=== PATIENT | male | born 1940 | race Caucasian/White ===

== ENCOUNTER 2018-12-19 15:17 | Outpatient (CLI) | payer MEDICARE ==
[~2018-12-19] VITALS: Ht 170.2 cm; Wt 107.5 kg
[2018-12-19 16:38] LABS: CLARITY,URINE CLEAR (Clear); COLOR,URINE STRAW (Yellow); GLUCOSE, URINE NEGATIVE (Neg); KETONES,URINE NEGATIVE (Neg); LEUKOCYTE ESTERASE ,URINE NEGATIVE (Neg); NITRITES, URINE NEGATIVE (Neg); OCCULT BLOOD,URINE NEGATIVE (Neg); PROTEIN,URINE NEGATIVE (Neg); UROBILINOGEN,URINE 0.2 E.U/dL (0.2-1.0)
[2018-12-19] MEDS ORDERED: ATOR10TA70 PO (16:41)
[2018-12-19] MEDS ORDERED: CLOP75TA35 PO (16:41)
[2018-12-19] MEDS ORDERED: METF500T7 PO (16:41)
[2018-12-19] MEDS ORDERED: LOSA25TA41 PO (16:41)
[2018-12-19] MEDS ORDERED: DONE-46 PO (16:41)
[2018-12-19 16:42] LABS: UA COLLECTION TYPE NON-SPECIFIED
[2018-12-19] MEDS ORDERED: SLEEPING MED PO (16:42)
[2018-12-19 16:51] LABS: ALBUMIN 3.6 G/DL (3.4-5.0); ALKALINE PHOSPHATASE 47 IU/L (46-116); BLOOD UREA NITROGEN 15 MG/DL (7-18); BUN/CREATININE RATIO 19.2 (5.4-32.0); CALCIUM 9.3 MG/DL (8.5-10.1); CHLORIDE 103 MMOL/L (99-107); CREATININE 0.78 MG/DL (0.60-1.10); PRE OP ALT 32 U/L (30-65); PRE OP ANION GAP 8 (8-16); PRE OP AST 21 U/L (10-37); PRE OP BILIRUB, TOTAL 0.5 MG/DL (0.0-1.0); PRE OP GLUCOSE 92 MG/DL (70-104); PRE OP POTASSIUM 3.8 MMOL/L (3.4-5.1); PRE OP SODIUM 138 MMOL/L (135-145); TOTAL CARBON DIOXIDE 27.4 MMOL/L (24-32); TOTAL PROTEIN 7.2 G/DL (6.4-8.2); eGFR > 90 ML/MIN
[2018-12-19 16:54] LABS: BASOPHILS % (AUTO) 0.6 % (0-1); EOSINOPHILS # (AUTO) 0.3 X10'3 (0-0.9); EOSINOPHILS % (AUTO) 3.5 % (0-6); LYMPHOCYTES # (AUTO) 2.4 X10'3 (1.1-4.8); LYMPHOCYTES % (AUTO) 31.3 % (21-51); MEAN CORPUSCULAR HEMOGLOBIN 31.5 PG (27.0-31.0); MEAN CORPUSCULAR HGB CONC 34.1 g/dL (33.0-36.5); MEAN CORPUSCULAR VOLUME 92.4 FL (78-98); MEAN PLATELET VOLUME 8.7 FL (7.4-10.4); MONOCYTES # (AUTO) 0.6 X10'3 (0-0.9); MONOCYTES % (AUTO) 7.2 % (2-12); NEUTROPHILS # (AUTO) 4.5 X10'3 (1.8-7.7); NEUTROPHILS % (AUTO) 57.4 % (42-75); PRE OP HEMATOCRIT 45.2 % (42.0-52.0); PRE OP HEMOGLOBIN 15.4 g/dL (14.0-17.9); PRE OP PLATELET COUNT 233 X10'3 (140-440); RED BLOOD COUNT 4.89 X10'6 (4.70-6.10); RED CELL DISTRIBUTION WIDTH 12.3 % (11.5-14.5)
[2018-12-20] MEDS ORDERED: ringers solution, lacted 1,000 ML IV SCH (05:00)
[2018-12-20] MEDS ORDERED: famotidine 20mg tablet PO ONE (05:30)
[2018-12-20] MEDS ORDERED: cefazolin/dext.iso 2gm/50ml 50 ML IV ONE (05:30)
[2018-12-20] MEDS ORDERED: phenylephrine inj 10 MG in normal saline 250ml IV soln 250 ML IV PRN (10:41)
[2018-12-20] MEDS ORDERED: nitroGLYCERIN-Tridil 50MG/D5W 250 ML IV PRN (10:41)
== END 2018-12-19 23:59 | disposition home or self-care (01) ==
LOC: PRE-OP 15:17 → EDSTATUS 12-20 15:30
PROVIDERS: ATTEND Surgery
DX: Z01.818 Encounter for other preprocedural examination (principal); I65.23 Occlusion and stenosis of bilateral carotid arteries; E11.9 Type 2 diabetes mellitus without complications; Z79.01 Long term (current) use of anticoagulants; Z79.899 Other long term (current) drug therapy
CPT/HCPCS: 36415; 71046; 80053; 81003; 83036; 85025; 85610; 85730; 86885; 86900; 86901; 87070; 93005; J0690; J2370; J3490; J7030; J7120

== ENCOUNTER 2019-01-04 11:21 | Day surgery (SDC) | payer MEDICARE ==
[2019-01-02 09:19] LABS: BASOPHILS # (AUTO) 0.1 X10'3 (0-0.2); EOSINOPHILS # (AUTO) 0.3 X10'3 (0-0.9); EOSINOPHILS % (AUTO) 3.5 % (0-6); HEMATOCRIT 42.7 % (42.0-52.0); HEMOGLOBIN 14.5 g/dl (14.0-17.9); LYMPHOCYTES % (AUTO) 24.4 % (21-51); MEAN CORPUSCULAR VOLUME 91.1 FL (78-98); MEAN PLATELET VOLUME 8.5 FL (7.4-10.4); MONOCYTES # (AUTO) 0.6 X10'3 (0-0.9); MONOCYTES % (AUTO) 7.7 % (2-12); NEUTROPHILS # (AUTO) 5.1 X10'3 (1.8-7.7); NEUTROPHILS % (AUTO) 63.4 % (42-75); PLATELET COUNT 188 X10'3 (140-440); RED BLOOD COUNT 4.69 X10'6 (4.70-6.10); RED CELL DISTRIBUTION WIDTH 12.8 % (11.5-14.5); WHITE BLOOD COUNT 8.1 X10'3 (4.5-11.0)
[2019-01-02 09:29] LABS: ALANINE AMINOTRANSFERASE 30 U/L (12-78); ALBUMIN 3.2 G/DL (3.4-5.0); ALKALINE PHOSPHATASE 60 IU/L (46-116); ANION GAP 6 (8-16); ASPARTATE AMINO TRANSFERASE 25 U/L (10-37); BILIRUBIN,TOTAL 0.4 MG/DL (0.1-1.0); BLOOD UREA NITROGEN 16 MG/DL (7-18); BUN/CREATININE RATIO 17.6 (5.4-32.0); CALCIUM 8.9 MG/DL (8.5-10.1); CHLORIDE 104 MMOL/L (99-107); CREATININE 0.91 MG/DL (0.60-1.10); GLUCOSE 107 MG/DL (70-104); POTASSIUM 3.9 MMOL/L (3.5-5.1); SODIUM 139 MMOL/L (135-145); TOTAL CARBON DIOXIDE 29.2 MMOL/L (24-32); TOTAL PROTEIN 6.5 G/DL (6.4-8.2); eGFR 81 ML/MIN
[2019-01-02 09:41] LABS: PARTIAL THROMBOPLASTIN TIME 28 SECONDS (22-32); PROTHROMBIN TIME 10.2 SECONDS (9.0-12.0)
[~2019-01-04] VITALS: Ht 170.2 cm; Wt 108.6 kg
[2019-01-04] VITALS (12 sets, daily range): BP systolic 134–170; BP diastolic 65–83
[~2019-01-04 11:21] MED LIST: ATOR10TA70 PO; CLOP75TA35 PO; DONE-46 PO; LOSA25TA41 PO; METF500T7 PO; SLEEPING MED PO
[2019-01-04] MEDS ORDERED: HYDR12.597 PO (12:16)
[2019-01-04] MEDS ORDERED: NORT25CA PO (12:16)
[2019-01-04] MEDS ORDERED: iohexol 350 MG/ML 50ML vial IV ONE (12:49)
[2019-01-04] MEDS ORDERED: iohexol 350MG/ML 100ml bottle IV ONE ×2 (12:49→17:25)
[2019-01-04] MEDS ORDERED: LIDOcaine 1% (10mg/ml)w/preservative injection 20ml MDV ONE (12:49)
[2019-01-04] MEDS ORDERED: fentaNYL/PF 50MCG/1 ML 2ML syringe ONE (12:49)
[2019-01-04] MEDS ORDERED: midazolam 2 mg/2 ml injection ONE (12:49)
[2019-01-04] MEDS ORDERED: insulin Lispro (HumaLOG) vial - multi-dose SQ SCH (12:55)
[2019-01-04] MEDS ORDERED: glucagon, human recombinant 1mg kit SUBCUT PRN (12:55)
[2019-01-04] MEDS ORDERED: LORazepam 0.5 MG tablet PO PRN (12:55)
[2019-01-04] MEDS ORDERED: dextrose ORAL solution 15 GM/59 ML bottle PO PRN ×2 (12:55)
[2019-01-04] MEDS ORDERED: nitroGLYCERIN 0.4mg SUBLingual tab SL PRN (12:55)
[2019-01-04] MEDS ORDERED: normal saline 1000ml 1,000 ML IV SCH (12:55)
[2019-01-04] MEDS ORDERED: dextrose 50%-water 50ml dispensing syringe IV PRN ×2 (12:55)
[2019-01-04] MEDS ORDERED: diphenhydrAMINE 25mg capsule PO PRN (12:55)
[2019-01-04] MEDS ORDERED: insulin glargine (Lantus) pen - multi-dose SQ SCH (21:00)
== END 2019-01-04 20:40 | disposition home or self-care (01) ==
LOC: SSTAY O 11:21
PROVIDERS: ATTEND Internal Medicine Cardiovascular Disease
DX: I25.10 Atherosclerotic heart disease of native coronary artery without angina pectoris (principal); I10 Essential (primary) hypertension; G62.9 Polyneuropathy, unspecified; I25.5 Ischemic cardiomyopathy; Z79.899 Other long term (current) drug therapy; E78.5 Hyperlipidemia, unspecified; J44.9 Chronic obstructive pulmonary disease, unspecified; I73.9 Peripheral vascular disease, unspecified; Z86.73 Personal history of transient ischemic attack (TIA), and cerebral infarction without residual deficits
CPT/HCPCS: 36415; 70498; 71046; 80053; 85025; 85610; 85730; 93005; 93458; 99152; 99153; A6257; J1644; J2001; J2250; J3010; J7030; Q0163; Q9967; A4620; C1760; C1769; J1815

== ENCOUNTER 2019-01-26 05:15 | Inpatient (IN) | payer MEDICARE, OTHER | END 2019-01-27 11:35 | disposition short-term general hospital (02) | LOC: PAS IN 05:15 → ICU 2S 07:10 | PROC: 0211093 Bypass Coronary Artery, Two Arteries from Coronary Artery with Autologous Venous Tissue, Open Approach (ICD-10-PCS; principal; 2019-01-26 07:35) | PROC: 02100Z9 Bypass Coronary Artery, One Artery from Left Internal Mammary, Open Approach (ICD-10-PCS; 2019-01-26 07:35) | PROC: 06BQ4ZZ Excision of Left Saphenous Vein, Percutaneous Endoscopic Approach (ICD-10-PCS; 2019-01-26 07:35) | PROC: 06BP4ZZ Excision of Right Saphenous Vein, Percutaneous Endoscopic Approach (ICD-10-PCS; 2019-01-26 07:35) | PROC: B246ZZ4 Ultrasonography of Right and Left Heart, Transesophageal (ICD-10-PCS; 2019-01-26 07:35) | DX: I25.10 Atherosclerotic heart disease of native coronary artery without angina pectoris (principal); I50.33 Acute on chronic diastolic (congestive) heart failure; I25.5 Ischemic cardiomyopathy ==

== ENCOUNTER 2019-01-26 05:15 | Inpatient (IN) | payer MEDICARE, OTHER ==
[~2019-01-26] VITALS: Ht 182.9 cm; Wt 98.6 kg
[~2019-01-26 05:15] MED LIST changes: +HYDR12.597 PO; -METF500T7 PO; +NORT25CA PO; +SIMV40TA PO; -SLEEPING MED PO
--- NOTE | 2019-01-28 16:20 | NUR ---
pt arrived from OSH. Pt hypertensive on fentanyl gtt. Fentanyl dc'd and returned to OSH per JOSHUA Martinez. Pt remains hypertensive. CT hooked up to suction. placed on monitor. awaiting orders
[2019-01-28] MEDS ORDERED: nitroGLYCERIN-Tridil 50MG/D5W 250 ML IV PRN (17:13)
[2019-01-28] MEDS ORDERED: DOPamine 400mg/D5W 250ml 250 ML IV PRN (17:13)
[2019-01-28] MEDS ORDERED: NORepinephrine 8mg/ 250ml NS 250 ML IV PRN (17:13)
[2019-01-28] MEDS ORDERED: magnesium 2GM in 50ml NS 50 ML IV PRN (17:15)
[2019-01-28] MEDS ORDERED: metoclopramide 5 mg/ml inj IV PRN (17:15)
[2019-01-28] MEDS ORDERED: albumin (Human) 5% 250ml 250 ML IV PRN (17:15)
[2019-01-28] MEDS ORDERED: normal saline 250ml IV soln 250 ML IV PRN (17:15)
[2019-01-28] MEDS ORDERED: morphine 4 MG/ML inj SYRINge IV PRN (17:15)
[2019-01-28] MEDS ORDERED: Neutra Phos packet PO PRN (17:15)
[2019-01-28] MEDS ORDERED: sodium phosphate inj. 30 MMOL in dextrose 5%-water 250 ML IV PRN (17:15)
[2019-01-28] MEDS ORDERED: ondansetron/PF 4mg/2ml inj IV PRN (17:15)
[2019-01-28] MEDS: insulin regular, human inj. 100 UNITS in normal saline 100ml IV soln 100 ML IV SCH ×2 (17:15)
[2019-01-28] MEDS ORDERED: pantoprazole 40 MG vial IV ONE (17:15)
[2019-01-28] MEDS ORDERED: magnesium hydroxide 30ml (MOM) UD suspension PO PRN (17:15)
[2019-01-28] MEDS ORDERED: magnesium 4gm in 100ml NS 100 ML IV PRN (17:15)
[2019-01-28] MEDS ORDERED: dextrose 50%-water 50ml dispensing syringe IV PRN (17:15)
[2019-01-28] MEDS ORDERED: acetaminophen 325mg tablet PO PRN (17:15)
[2019-01-28] MEDS ORDERED: potassium Cl 20mEq/100mL bag 100 ML IV PRN ×2 (17:15)
[2019-01-28] MEDS ORDERED: sodium phosphate inj. 15 MMOL in dextrose 5%-water 150 ML IV PRN (17:15)
[2019-01-28] MEDS ORDERED: HYDROcodone/acetaminophen 10/325mg tab PO PRN ×2 (17:15)
[2019-01-28] MEDS ORDERED: nitroGLYCERIN-Tridil 50MG/D5W 250 ML IV ONE (17:28)
[2019-01-28] MEDS ORDERED: furosemide 40mg/4ml inj IV ONE (17:40)
[2019-01-28] MEDS ORDERED: furosemide 40mg/4ml inj ONE (17:41)
[2019-01-28 17:44] LABS: BASOPHILS # (AUTO) 0.1 X10'3 (0-0.2); BASOPHILS % (AUTO) 0.6 % (0-1); EOSINOPHILS % (AUTO) 0 % (0-6); LYMPHOCYTES # (AUTO) 1.5 X10'3 (1.1-4.8); LYMPHOCYTES % (AUTO) 11.1 % (21-51)
[2019-01-28 17:46] LABS: HEMATOCRIT 25.5 % (42.0-52.0); HEMOGLOBIN 8.8 g/dl (14.0-17.9); MEAN CORPUSCULAR HEMOGLOBIN 32.2 PG (27.0-31.0); MEAN CORPUSCULAR HGB CONC 34.7 g/dL (33.0-36.5); MEAN CORPUSCULAR VOLUME 92.8 FL (78-98); MEAN PLATELET VOLUME 9.1 FL (7.4-10.4); MONOCYTES % (AUTO) 7.8 % (2-12); NEUTROPHILS # (AUTO) 10.6 X10'3 (1.8-7.7); NEUTROPHILS % (AUTO) 80.5 % (42-75); PLATELET COUNT 95 X10'3 (140-440); RED BLOOD COUNT 2.75 X10'6 (4.70-6.10); RED CELL DISTRIBUTION WIDTH 13.4 % (11.5-14.5); WHITE BLOOD COUNT 13.2 X10'3 (4.5-11.0)
[2019-01-28] MEDS: morphine 4 MG/ML inj SYRINge IV PRN (17:50)
--- NOTE | 2019-01-28 17:50 | NUR ---
received orders. Spoke to Dr. Cha on telephone. notified of ST elevation on monitor. Will complete EKG. Dr. Cha aware of ST elevation (present at OSH and on admission), hypertension (nitro gtt started) Goal SBP between 120-160. Per Dr. Cha, believes pt is fluid overloaded. Will administer 40mg IVP lasix and administer IV push morphine. MD does not want patient placed on fentanyl gtt as pt needs to be worked toward extubation. RT at bedside doing weaning parameters with pt. Labs drawn and sent per MD order. ABG completed (awaiting results). Pt remains hypertensive at this time. Attempting to get CO/CI; however, monitor says Measurement failed charge nurse aware. pt intermittently dropping beat, no change per report from OSH. RN will continue to monitor.
[2019-01-28 17:59] LABS: ALANINE AMINOTRANSFERASE 28 U/L (12-78); ALBUMIN 3.1 G/DL (3.4-5.0); ALBUMIN/GLOBULIN RATIO 1.3 (1.1-1.5); ALKALINE PHOSPHATASE 20 IU/L (46-116); ANION GAP 7 (8-16); ASPARTATE AMINO TRANSFERASE 51 U/L (10-37); BILIRUBIN,TOTAL 0.5 MG/DL (0.1-1.0); BLOOD UREA NITROGEN 18 MG/DL (7-18); BUN/CREATININE RATIO 26.9 (5.4-32.0); CALCIUM 8.1 MG/DL (8.5-10.1); CHLORIDE 111 MMOL/L (99-107); CREATININE 0.67 MG/DL (0.60-1.10); GLUCOSE 130 MG/DL (70-104); MAGNESIUM 2.1 MG/DL (1.5-2.4); PHOSPHORUS 2.3 MG/DL (2.3-4.5); POTASSIUM 4.4 MMOL/L (3.5-5.1); SODIUM 144 MMOL/L (135-145); TOTAL CARBON DIOXIDE 26.2 MMOL/L (24-32); TOTAL PROTEIN 5.5 G/DL (6.4-8.2); eGFR > 90 ML/MIN
[2019-01-28 18:00] VITALS: BP 164/62
[2019-01-28] MEDS: insulin Lispro (HumaLOG) vial - multi-dose SQ SCH (18:00)
[2019-01-28] MEDS: sodium chloride 0.45% 1,000 ML IV SCH (18:00)
[2019-01-28 18:11] LABS: ABG BASE EXCESS -0.7 mmol/L (-2.0-3.0); ABG HCO3 23.2 mmol/L (22.0-26.0); ABG OXYGEN SATURATION 93.4 % (95-98); ABG PCO2 (T) 35.7 mmHg (35.0-48.0); ABG PO2 (T) 69.5 mmHg (83-108); FCOHb 0.3 % (0.5-1.5); FLOW 55 L/min; FMetHb 0.3 % (0.3-1.12); FO2Hb 92.8 % (94-100); MINUTE VOLUME 8 L/min; PEEP 5 cm H2O; RESPIRATORY RATE 10 b/min; RESPIRATORY RATE (OBSERVED) 14 b/min; TIDAL VOLUME 475 mL; TOTAL HEMOGLOBIN 11.9 G/dl (14.0-18.0)
--- NOTE | 2019-01-28 18:32 | NUR ---
spoke to Dr. Cha updated on rhythm no new orders at this time. passed report to JOSHUA Dooley.
[2019-01-28 18:44] LABS: PARTIAL THROMBOPLASTIN TIME 30 SECONDS (22-32)
[2019-01-28 19:00] VITALS: BP 141/47
[2019-01-28 20:00] VITALS: BP 158/50
[2019-01-28] MEDS: docusate sod 100mg capsule PO SCH (20:00)
--- NOTE | 2019-01-28 20:15 | NUR ---
Updated Dr Cha on Patients status. CI 1.7, CO 4.1. Patient in Afib. Current PA pressures and Vent settings. No new orders at this time. Will continue to monitor patient closely.
[2019-01-28] MEDS: mupirocin 2% nasal ointment 1gm UD NS SCH (20:33)
[2019-01-28 21:00] VITALS: BP 158/50
[2019-01-28 22:00] VITALS: BP 145/58
[2019-01-28 22:31] LABS: ANION GAP 8 (8-16); BLOOD UREA NITROGEN 18 MG/DL (7-18); BUN/CREATININE RATIO 24.3 (5.4-32.0); CALCIUM 8.3 MG/DL (8.5-10.1); CHLORIDE 110 MMOL/L (99-107); CREATININE 0.74 MG/DL (0.60-1.10); GLUCOSE 141 MG/DL (70-104); PHOSPHORUS 2.7 MG/DL (2.3-4.5); SODIUM 144 MMOL/L (135-145); TOTAL CARBON DIOXIDE 26.3 MMOL/L (24-32); eGFR > 90 ML/MIN
[2019-01-28 22:32] LABS: POTASSIUM 4.3 MMOL/L (3.5-5.1)
[2019-01-28 22:36] LABS: BASOPHILS % (AUTO) 0.3 % (0-1); EOSINOPHILS % (AUTO) 0 % (0-6); HEMATOCRIT 25.6 % (42.0-52.0); HEMOGLOBIN 8.7 g/dl (14.0-17.9); LYMPHOCYTES # (AUTO) 1.8 X10'3 (1.1-4.8); LYMPHOCYTES % (AUTO) 11.9 % (21-51); MEAN CORPUSCULAR HEMOGLOBIN 31.3 PG (27.0-31.0); MEAN CORPUSCULAR HGB CONC 33.9 g/dL (33.0-36.5); MEAN CORPUSCULAR VOLUME 92.3 FL (78-98); MEAN PLATELET VOLUME 10.3 FL (7.4-10.4); MONOCYTES # (AUTO) 1.3 X10'3 (0-0.9); MONOCYTES % (AUTO) 8.6 % (2-12); NEUTROPHILS # (AUTO) 11.9 X10'3 (1.8-7.7); NEUTROPHILS % (AUTO) 79.2 % (42-75); PLATELET COUNT 124 X10'3 (140-440); RED BLOOD COUNT 2.78 X10'6 (4.70-6.10); RED CELL DISTRIBUTION WIDTH 13.6 % (11.5-14.5); WHITE BLOOD COUNT 15.1 X10'3 (4.5-11.0)
[2019-01-28] MEDS: potassium Cl 20mEq/100mL bag 100 ML IV PRN (22:42)
[2019-01-28 23:00] VITALS: BP 135/50
[2019-01-29] VITALS (23 sets, daily range): BP systolic 121–170; BP diastolic 46–57
[2019-01-29] MEDS: morphine 4 MG/ML inj SYRINge IV PRN (01:22)
[2019-01-29 03:40] LABS: ABG BASE EXCESS 0.8 mmol/L (-2.0-3.0); ABG HCO3 25.1 mmol/L (22.0-26.0); ABG OXYGEN SATURATION 94.4 % (95-98); ABG PCO2 (T) 37.8 mmHg (35.0-48.0); ABG PH (T) 7.438 (7.350-7.450); ALLEN'S TEST Positive; FCOHb 0.3 % (0.5-1.5); FMetHb 0.1 % (0.3-1.12); MINUTE VOLUME 8 L/min; PATIENT TEMPERATURE 36.6; PEEP 5 cm H2O; RESPIRATORY RATE (OBSERVED) 15 b/min; TOTAL HEMOGLOBIN 8.8 G/dl (14.0-18.0)
[2019-01-29 04:09] LABS: ALANINE AMINOTRANSFERASE 26 U/L (12-78); ALBUMIN 2.8 G/DL (3.4-5.0); ALBUMIN/GLOBULIN RATIO 1.1 (1.1-1.5); ALKALINE PHOSPHATASE 21 IU/L (46-116); ANION GAP 7 (8-16); ASPARTATE AMINO TRANSFERASE 41 U/L (10-37); BILIRUBIN,TOTAL 0.5 MG/DL (0.1-1.0); BLOOD UREA NITROGEN 19 MG/DL (7-18); BUN/CREATININE RATIO 25.7 (5.4-32.0); CALCIUM 8.3 MG/DL (8.5-10.1); CHLORIDE 110 MMOL/L (99-107); CREATININE 0.74 MG/DL (0.60-1.10); GLUCOSE 146 MG/DL (70-104); POTASSIUM 4.2 MMOL/L (3.5-5.1); SODIUM 143 MMOL/L (135-145); TOTAL CARBON DIOXIDE 25.9 MMOL/L (24-32); TOTAL PROTEIN 5.3 G/DL (6.4-8.2); eGFR > 90 ML/MIN
--- NOTE | 2019-01-29 04:15 | NUR ---
Patient did not pass weaning parameters at this time. Patient able to follow commands but only for a short period of time and continued to fall asleep while RT was doing weaning trials. Patient on Spont at this time. Will continue to monitor.
[2019-01-29 04:17] LABS: BASOPHILS % (AUTO) 0.3 % (0-1); EOSINOPHILS % (AUTO) 0.2 % (0-6); HEMATOCRIT 23.5 % (42.0-52.0); HEMOGLOBIN 8.1 g/dl (14.0-17.9); LYMPHOCYTES # (AUTO) 1.6 X10'3 (1.1-4.8); MEAN CORPUSCULAR HEMOGLOBIN 31.7 PG (27.0-31.0); MEAN CORPUSCULAR HGB CONC 34.5 g/dL (33.0-36.5); MEAN CORPUSCULAR VOLUME 91.8 FL (78-98); MEAN PLATELET VOLUME 9.6 FL (7.4-10.4); MONOCYTES # (AUTO) 1.1 X10'3 (0-0.9); MONOCYTES % (AUTO) 8.2 % (2-12); NEUTROPHILS # (AUTO) 10.4 X10'3 (1.8-7.7); NEUTROPHILS % (AUTO) 79.3 % (42-75); PLATELET COUNT 103 X10'3 (140-440); RED BLOOD COUNT 2.56 X10'6 (4.70-6.10); RED CELL DISTRIBUTION WIDTH 13.2 % (11.5-14.5); WHITE BLOOD COUNT 13.1 X10'3 (4.5-11.0)
[2019-01-29] MEDS: potassium Cl 20mEq/100mL bag 100 ML IV PRN (04:24)
[2019-01-29 04:37] LABS: MAGNESIUM 2.6 MG/DL (1.5-2.4)
[2019-01-29 06:14] LABS: PARTIAL THROMBOPLASTIN TIME 29 SECONDS (22-32)
--- NOTE | 2019-01-29 06:27 | NUR ---
Problems reprioritized. Patient report given, questions answered & plan of care reviewed with Shari LEWIS.
[2019-01-29] MEDS: metoprolol tartrate 12.5mg (1/2 tablet) PO SCH ×2 (07:57→21:35)
[2019-01-29] MEDS: atorvastatin 10mg tablet PO SCH (07:58)
[2019-01-29] MEDS: aspirin 81mg tab.chew PO SCH (07:58)
[2019-01-29] MEDS ORDERED: clopidogrel 75mg tablet PO SCH (08:00)
[2019-01-29] MEDS: mupirocin 2% nasal ointment 1gm UD NS SCH ×2 (08:00→20:00)
[2019-01-29] MEDS: docusate sod 100mg capsule PO SCH (08:00)
[2019-01-29] MEDS: insulin Lispro (HumaLOG) vial - multi-dose SQ SCH ×3 (10:00→18:00)
--- NOTE | 2019-01-29 11:51 | NUR ---
CABG consult: Pt intubated s/p carotid stent and CABGx3. Receiving electrolyte replacement per protocol. No BM yet w/ admit 01/28. TF recs below for protein needs if prolonged intubation. Will monitor for CABG ed need once clinically stable. Rec: 1. IF prolonged intubation, Vital HP at 85ml/hr 2. advance diet s/p extubation to NCS 3. CABG ed once clinically stable prior to d/c 4. routine bowel care Addendum: 01/29/19 at [address] Amended: Links added.
[2019-01-29] MEDS: insulin regular, human inj. 100 UNITS in normal saline 100ml IV soln 100 ML IV SCH ×2 (17:15)
--- NOTE | 2019-01-29 18:25 | NUR ---
Patient in room ICU 2039. I have received report from JOSHUA Mccarthy and had the opportunity to ask questions and assume patient care along with Chayo Martinez RN. Patient is awake, eyes open spontaneously. Patients head is turned to the right, after repositioning patient continued to find this position. Patient is able to follow commands and will squeeze his right hand, patient is able to lift his right arm off the bed with weakness. Patient is unable to squeeze left hand, does make attempt and fingers move. Patient is unable to move his arm. Gross motor movement observed. Patient is able to move feet and will move his Left and Right legs at times. Patient is answering "yes" to all questions by nodding his head. Patient will track with eyes has some degree of trouble tracking to the left. The left movement of his eyes is not smooth. Nitroglycerin drip at 25 mcg/min infusing per MD order and titration protocol for blood pressure control. Patient with Arterial line, Pulmonary Artery line, CVP line in place. Patient with cast catheter in place.
[2019-01-29] MEDS: docusate sodium 100mg/10ml UD cup PO SCH (21:35)
--- NOTE | 2019-01-29 23:48 | NUR ---
call placed to Dr. Cha regarding pt had a brief moment of bradycardia, heart rate down to 55, blood pressure systolic down to 104, Tridil turned off until sbp greater then 140. the need to turn on the pacemaker with a ventricular rate set at 60, heart rate back up to the 70's sbp back up to greater then 140. no new orders from Dr. Cha
[2019-01-30] VITALS (24 sets, daily range): BP systolic 124–183; BP diastolic 47–68
[2019-01-30 00:08] LABS: PARTIAL THROMBOPLASTIN TIME 27 SECONDS (22-32)
[2019-01-30 03:26] LABS: BASOPHILS # (AUTO) 0.1 X10'3 (0-0.2); BASOPHILS % (AUTO) 0.6 % (0-1); EOSINOPHILS # (AUTO) 0.1 X10'3 (0-0.9); EOSINOPHILS % (AUTO) 1.2 % (0-6); HEMATOCRIT 23.5 % (42.0-52.0); LYMPHOCYTES # (AUTO) 1.4 X10'3 (1.1-4.8); LYMPHOCYTES % (AUTO) 12.3 % (21-51); MEAN CORPUSCULAR HEMOGLOBIN 31.2 PG (27.0-31.0); MEAN CORPUSCULAR HGB CONC 33.9 g/dL (33.0-36.5); MEAN CORPUSCULAR VOLUME 92.2 FL (78-98); MEAN PLATELET VOLUME 9.3 FL (7.4-10.4); MONOCYTES % (AUTO) 8.8 % (2-12); NEUTROPHILS # (AUTO) 8.7 X10'3 (1.8-7.7); NEUTROPHILS % (AUTO) 77.1 % (42-75); PLATELET COUNT 120 X10'3 (140-440); RED BLOOD COUNT 2.55 X10'6 (4.70-6.10); RED CELL DISTRIBUTION WIDTH 13.2 % (11.5-14.5); WHITE BLOOD COUNT 11.3 X10'3 (4.5-11.0)
[2019-01-30 03:48] LABS: ALBUMIN 2.6 G/DL (3.4-5.0); ANION GAP 9 (8-16); BLOOD UREA NITROGEN 21 MG/DL (7-18); BUN/CREATININE RATIO 34.4 (5.4-32.0); CALCIUM 8.3 MG/DL (8.5-10.1); CHLORIDE 109 MMOL/L (99-107); CREATININE 0.61 MG/DL (0.60-1.10); GLUCOSE 138 MG/DL (70-104); SODIUM 141 MMOL/L (135-145); TOTAL CARBON DIOXIDE 23.4 MMOL/L (24-32); eGFR > 90 ML/MIN
[2019-01-30 03:53] LABS: POTASSIUM 4.6 MMOL/L (3.5-5.1)
[2019-01-30 04:05] LABS: ABG BASE EXCESS -1.7 mmol/L (-2.0-3.0); ABG HCO3 21.9 mmol/L (22.0-26.0); ABG OXYGEN SATURATION 96.6 % (95-98); ABG PCO2 (T) 32.8 mmHg (35.0-48.0); ABG PH (T) 7.443 (7.350-7.450); ABG PO2 (T) 102.1 mmHg (83-108); FCOHb 0.2 % (0.5-1.5); FMetHb 0.2 % (0.3-1.12); FO2Hb 96.2 % (94-100); MINUTE VOLUME 10 L/min; PATIENT TEMPERATURE 37.3; PEEP 5 cm H2O; RESPIRATORY RATE (OBSERVED) 20 b/min; TOTAL HEMOGLOBIN 8.3 G/dl (14.0-18.0)
[2019-01-30 05:29] LABS: MAGNESIUM 2.1 MG/DL (1.5-2.4)
--- NOTE | 2019-01-30 06:24 | NUR ---
Problems reprioritized. Patient report given, questions answered & plan of care reviewed with JOSHUA Melo.
[2019-01-30] MEDS: pantoprazole 40mg Tablet.DR PO SCH (07:30)
[2019-01-30] MEDS: mupirocin 2% nasal ointment 1gm UD NS SCH (08:00)
[2019-01-30] MEDS: docusate sodium 100mg/10ml UD cup PO SCH ×2 (08:00→21:54)
[2019-01-30] MEDS: atorvastatin 10mg tablet PO SCH (08:00)
--- NOTE | 2019-01-30 08:00 | NUR ---
pt able to follow commands on BLE and RUE. Pt does not move LUE. pt will turn head from side to side; however does favor R side (including visual field). Pt able to stick out tongue, does go to R side. Some R sided facial droop noted in lips. Pts pupils are equal and reactive. Will be able to do further assessment post extubation- planned for later today Addendum: 01/30/19 at 1007 by Nikhil Muñoz RN Amended: Links added.
--- NOTE | 2019-01-30 08:00 | NUR ---
pt able to wiggle toes BLE; able to put thumb up on right side. when asked pt will stick his brown out; however, always puts it on the right. Pt favors Right side. Does occasionaly look to the left, if prompted, but usually faces R side
[2019-01-30] MEDS: aspirin 81mg tab.chew PO SCH (08:30)
[2019-01-30] MEDS: insulin Lispro (HumaLOG) vial - multi-dose SQ SCH ×3 (09:00→18:00)
--- NOTE | 2019-01-30 09:10 | NUR ---
Pt extubated to 4L NC at 0905. Pt able to follow some commands. Still favors R side. LUE does not move. Pt oriented to self (able to say last name). Pt disoriented to place, time, and situation. RN attempts to reorient pt at this time. Small facial droop still noted on R side. Pt does recognize family members and does communicate with them. Asks appropriate questions to family. Requesting something to drink. Pt has very weak cough has to be suctioned out. Encourage coughing and deep breathing. Daughter at bedside. RN will continue to monitor Addendum: 01/30/19 at 1103 by Nikhil Muñoz RN Amended: Links added.
[2019-01-30] MEDS ORDERED: ticagrelor 90mg tablet PO ONE (15:10)
[2019-01-30] MEDS ORDERED: furosemide 40mg/4ml inj IV ONE (15:10)
--- NOTE | 2019-01-30 15:50 | NUR ---
ON 01-27-2019 JOSE. 12 NOON ASSISTED WITH TRANSPORT TEAM.BAGGED PATIENT TO [facility]. SPO2 DURING AND AT DESTINATION 97-98%, ETCO 35-40, WITH NO APPARENT COMPLICATIONS. GAVE REPORT TO NAVYA FORD AT [facility] WITH THE CURRENT VENT. SETTINGS ON THAT DAY SIMV 600 ML, RR SET 10, RR ACTUAL 16, PEEP 5. NAVYA RECEIVED PATIENT ON TO THEIR TRANSPORT VENT IN CT ROOM. Addendum: 01/30/19 at 1557 by Irvin Harris RT Amended: Links added.
[2019-01-30] MEDS ORDERED: guaiFENesin ER 600mg tablet PO SCH (16:30)
[2019-01-30] MEDS ORDERED: ipratropium/albuterol 3ml nebule NEB PRN (16:30)
[2019-01-30] MEDS ORDERED: racepinephrine 11.25mg/0.5ml nebule NEB PRN (16:30)
--- NOTE | 2019-01-30 18:20 | NUR ---
Patient in room ICU 2039. I have received report from JOSHUA Melo and had the opportunity to ask questions and assume patient care with preceptor Chayo Martinez RN. Patient is awake in bed, speech is slurred and at times difficult to understand. Patient has expressive aphasia. Patient remains very fatigued and is extremely weak to his left side. Patient lists to the right in bed and favors his right side. patient is able to move his right arm and hand, and moves both lower extremities. Patient with right central line in tact with CVP line. Shirley catheter in place. Patient has pacer wires intact with settings at rate 80 and mA 20 with ventricular capture. Patient is extubated and is having trouble clearing secretions.
--- NOTE | 2019-01-30 19:20 | NUR ---
Spoke to Antonio HANDY regarding pt having difficulties clearing secretions, having copious amounts of thick secretions, orders received for NT suction and to place a nasal trumpet
[2019-01-30] MEDS: ipratropium/albuterol 3ml nebule NEB SCH ×2 (19:30→23:33)
[2019-01-30] MEDS: nortriptyline 25mg capsule PO SCH (21:00)
[2019-01-30] MEDS: sodium chloride 0.45% 1,000 ML IV SCH (21:53)
[2019-01-30] MEDS: guaiFENesin 200 MG/10 ML oral syrup UD cup PO SCH (21:53)
[2019-01-30] MEDS: acetaminophen 325mg/10.15ml oral unit dose solution PO PRN (21:54)
[2019-01-30] MEDS: losartan 25mg tablet PO SCH (21:54)
[2019-01-30] MEDS: donepezil 5mg tablet PO SCH (21:54)
--- NOTE | 2019-01-30 23:22 | NUR ---
pts Art line damped does not transduce, pt is hemodynamically stable, art line discontinued, tip intact, homeostasis obtained, pt tolerated well, cuff blood pressure in place
--- NOTE | 2019-01-30 23:40 | NUR ---
Tridil drip turned off. Patient with decreased blood pressure. Blood pressure increased after Tridil turned off. Will continue to monitor.
[2019-01-31] VITALS (24 sets, daily range): BP systolic 102–163; BP diastolic 43–68
--- NOTE | 2019-01-31 02:00 | NUR ---
Patient with increased airway secretions, Nasotracheal suctioning done with improved work of breathing and improved patient comfort. Patient with increased ability to clearly communicate, speech is clear and train of thought has improved. Will continue to monitor.
[2019-01-31 02:54] LABS: BASOPHILS % (AUTO) 0.3 % (0-1); EOSINOPHILS % (AUTO) 0.2 % (0-6); HEMATOCRIT 25.2 % (42.0-52.0); HEMOGLOBIN 8.7 g/dl (14.0-17.9); LYMPHOCYTES # (AUTO) 1.1 X10'3 (1.1-4.8); LYMPHOCYTES % (AUTO) 6.9 % (21-51); MEAN CORPUSCULAR HEMOGLOBIN 31.6 PG (27.0-31.0); MEAN CORPUSCULAR HGB CONC 34.4 g/dL (33.0-36.5); MEAN CORPUSCULAR VOLUME 91.7 FL (78-98); MEAN PLATELET VOLUME 8.5 FL (7.4-10.4); MONOCYTES # (AUTO) 1.1 X10'3 (0-0.9); MONOCYTES % (AUTO) 6.9 % (2-12); NEUTROPHILS # (AUTO) 14.1 X10'3 (1.8-7.7); NEUTROPHILS % (AUTO) 85.7 % (42-75); PLATELET COUNT 161 X10'3 (140-440); RED BLOOD COUNT 2.75 X10'6 (4.70-6.10); RED CELL DISTRIBUTION WIDTH 13.1 % (11.5-14.5); WHITE BLOOD COUNT 16.5 X10'3 (4.5-11.0)
[2019-01-31 02:58] LABS: ALBUMIN 2.7 G/DL (3.4-5.0); ANION GAP 7 (8-16); BLOOD UREA NITROGEN 22 MG/DL (7-18); BUN/CREATININE RATIO 25.3 (5.4-32.0); CALCIUM 8.4 MG/DL (8.5-10.1); CHLORIDE 108 MMOL/L (99-107); CREATININE 0.87 MG/DL (0.60-1.10); GLUCOSE 144 MG/DL (70-104); POTASSIUM 3.7 MMOL/L (3.5-5.1); SODIUM 143 MMOL/L (135-145); TOTAL CARBON DIOXIDE 28.2 MMOL/L (24-32); eGFR 85 ML/MIN
--- NOTE | 2019-01-31 03:30 | NUR ---
Patient is still oriented to person only. Does answer "yes" and "no" clearly in response to orientation questions. Patient is able to track with his eyes without difficulty. 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 Right upper arm is moved with increased ease. Will continue to monitor.
[2019-01-31] MEDS: guaiFENesin 200 MG/10 ML oral syrup UD cup PO SCH ×4 (03:35→20:27)
[2019-01-31] MEDS: ipratropium/albuterol 3ml nebule NEB SCH ×6 (04:01→23:29)
--- NOTE | 2019-01-31 06:23 | NUR ---
Problems reprioritized. Patient report given, questions answered & plan of care reviewed with JOSHUA Samano.
[2019-01-31] MEDS: docusate sodium 100mg/10ml UD cup PO SCH ×2 (07:50→20:27)
[2019-01-31] MEDS: ticagrelor 90mg tablet PO SCH ×2 (07:50→20:27)
[2019-01-31] MEDS: pantoprazole 40mg Tablet.DR PO SCH (07:50)
[2019-01-31] MEDS: atorvastatin 10mg tablet PO SCH (07:50)
[2019-01-31] MEDS: aspirin 81mg tab.chew PO SCH (07:50)
--- NOTE | 2019-01-31 08:27 | NUR ---
Dr. Cha here to see pt.
[2019-01-31] MEDS: insulin Lispro (HumaLOG) vial - multi-dose SQ SCH ×3 (09:00→17:01)
--- NOTE | 2019-01-31 11:45 | NUR ---
Tube feeding consult. Patient was extubated. Per RN patient did not pass swallow. Further follow-up BSS with MOP WORKER are pending. Patient does have NG tube for medication and now will be used for nutrition while he cannot have PO diet. S/p CABG x4 POD #5; when able patient will need written post cardiac diet education handout with verbal review r/t increased protein needs for wound healing. Rec: 1. Continuous tube feeding per NG tube with Glucerna 1.2 starting at 20 ml/hr and advance by 20 ml q 8 hours to goal rate of 95 ml/hr will provide total volume 2280 ml, 2736 cals, 137 gm protein, and 1832 ml free water. 2. Additional 150 ml water flush q 4 hours; Prealbumin q Wednesday and 3. Continue routine bowel care 4. Daily weight 5. Advance diet as medically indicated to no concentrated sweets when can pass swallow per MOP WORKER recommendations. Addendum: 01/31/19 at [address] Amended: Links added.
[2019-01-31] MEDS: donepezil 5mg tablet PO SCH (20:27)
[2019-01-31] MEDS: nortriptyline 25mg capsule PO SCH (20:27)
[2019-01-31] MEDS: losartan 25mg tablet PO SCH (20:27)
[2019-02-01] VITALS (24 sets, daily range): BP systolic 108–153; BP diastolic 45–69
[2019-02-01] MEDS: guaiFENesin 200 MG/10 ML oral syrup UD cup PO SCH ×4 (02:58→20:53)
[2019-02-01 03:58] LABS: ALBUMIN 2.6 G/DL (3.4-5.0); ANION GAP 9 (8-16); BASOPHILS % (AUTO) 0.1 % (0-1); BLOOD UREA NITROGEN 21 MG/DL (7-18); BUN/CREATININE RATIO 27.6 (5.4-32.0); CALCIUM 8.8 MG/DL (8.5-10.1); CHLORIDE 109 MMOL/L (99-107); CREATININE 0.76 MG/DL (0.60-1.10); EOSINOPHILS # (AUTO) 0.2 X10'3 (0-0.9); EOSINOPHILS % (AUTO) 1.5 % (0-6); GLUCOSE 144 MG/DL (70-104); HEMATOCRIT 27.7 % (42.0-52.0); HEMOGLOBIN 9.3 g/dl (14.0-17.9); LYMPHOCYTES # (AUTO) 1.1 X10'3 (1.1-4.8); LYMPHOCYTES % (AUTO) 7.8 % (21-51); MEAN CORPUSCULAR HEMOGLOBIN 31.2 PG (27.0-31.0); MEAN CORPUSCULAR HGB CONC 33.4 g/dL (33.0-36.5); MEAN CORPUSCULAR VOLUME 93.3 FL (78-98); MEAN PLATELET VOLUME 8.2 FL (7.4-10.4); MONOCYTES % (AUTO) 7.1 % (2-12); NEUTROPHILS # (AUTO) 12.3 X10'3 (1.8-7.7); NEUTROPHILS % (AUTO) 83.5 % (42-75); PLATELET COUNT 197 X10'3 (140-440); POTASSIUM 3.9 MMOL/L (3.5-5.1); RED BLOOD COUNT 2.97 X10'6 (4.70-6.10); RED CELL DISTRIBUTION WIDTH 13.5 % (11.5-14.5); SODIUM 143 MMOL/L (135-145); TOTAL CARBON DIOXIDE 24.9 MMOL/L (24-32); WHITE BLOOD COUNT 14.7 X10'3 (4.5-11.0); eGFR > 90 ML/MIN
[2019-02-01] MEDS: ipratropium/albuterol 3ml nebule NEB SCH ×6 (03:59→23:51)
[2019-02-01] MEDS ORDERED: iohexol 350MG/ML 100ml bottle IV ONE (08:31)
[2019-02-01] MEDS: pantoprazole 40mg Tablet.DR PO SCH ×2 (10:35→10:36)
[2019-02-01] MEDS: insulin Lispro (HumaLOG) vial - multi-dose SQ SCH (10:35)
[2019-02-01] MEDS: aspirin 81mg tab.chew PO SCH (10:36)
[2019-02-01] MEDS: ticagrelor 90mg tablet PO SCH ×2 (10:36→20:54)
[2019-02-01] MEDS: atorvastatin 10mg tablet PO SCH (10:36)
[2019-02-01] MEDS: docusate sodium 100mg/10ml UD cup PO SCH ×2 (10:36→20:00)
--- NOTE | 2019-02-01 11:40 | NUR ---
Report given to Yeimi Villagran RN
--- NOTE | 2019-02-01 12:25 | NUR ---
Follow-up: Patient seen by CLASSICS TEACHER this morning and passed swallow evaluation for pureed foods and nectar thick liquids. Patient still has NG and TF continue. Recommend to discontinue tube feedings if patient able to eat at least 65% of lunch meal, d/w bedside RN. S/p CABG x4 POD #6; when able patient will need written post cardiac diet education handout with verbal review r/t increased protein needs for wound healing. Will monitor for CABG ed Rec: 1. Continue tube feeding per NG tube with Glucerna 1.2 at goal rate of 95 ml/hr will provide total volume 2280 ml, 2736 cals, 137 gm protein, and 1832 ml free water. Continue TF until patient eats at least 65% of pureed meal. 2. Continue pureed, carb controlled, nectar thick liquid diet per CLASSICS TEACHER 3. While receiving TF continue additional 150 ml water flush q 4 hours; Prealbumin q Wednesday and 4. Continue routine bowel care 5. Daily weight 6. Advance diet as medically indicated to no concentrated sweets per CLASSICS TEACHER recommendations, currently patient on pureed meals with nectar thick liquids Addendum: 02/01/19 at [address] Amended: Links added.
--- NOTE | 2019-02-01 13:01 | NUR ---
report given to Dr. 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 Chester aware Daughter at bedside and updated on progress
[2019-02-01] MEDS: sodium chloride 0.45% 1,000 ML IV SCH (17:13)
[2019-02-01] MEDS: donepezil 5mg tablet PO SCH (20:54)
[2019-02-01] MEDS: nortriptyline 25mg capsule PO SCH (20:54)
[2019-02-01] MEDS: losartan 25mg tablet PO SCH (20:54)
--- NOTE | 2019-02-01 22:50 | NUR ---
RN Note MD Communication/ BiPAP Called Miguel Wheatley regarding pt reports using CPAP at home. Also daughter is concerned about his seeming more tired and confused than yesterday. Received order for BiPAP PRN as tolerated.
[2019-02-02] VITALS (24 sets, daily range): BP systolic 100–145; BP diastolic 4–62
[2019-02-02] MEDS: guaiFENesin 200 MG/10 ML oral syrup UD cup PO SCH ×4 (02:59→20:41)
[2019-02-02 03:40] LABS: BASOPHILS % (AUTO) 0.4 % (0-1); EOSINOPHILS # (AUTO) 0.6 X10'3 (0-0.9); EOSINOPHILS % (AUTO) 5.4 % (0-6); HEMATOCRIT 27.4 % (42.0-52.0); LYMPHOCYTES % (AUTO) 9.4 % (21-51); MEAN PLATELET VOLUME 8.5 FL (7.4-10.4); MONOCYTES # (AUTO) 0.7 X10'3 (0-0.9); MONOCYTES % (AUTO) 6.4 % (2-12); NEUTROPHILS # (AUTO) 8.3 X10'3 (1.8-7.7); NEUTROPHILS % (AUTO) 78.4 % (42-75); PLATELET COUNT 212 X10'3 (140-440); RED BLOOD COUNT 2.91 X10'6 (4.70-6.10); RED CELL DISTRIBUTION WIDTH 14.1 % (11.5-14.5); WHITE BLOOD COUNT 10.6 X10'3 (4.5-11.0)
[2019-02-02 03:45] LABS: ALBUMIN 2.4 G/DL (3.4-5.0); ANION GAP 9 (8-16); BLOOD UREA NITROGEN 23 MG/DL (7-18); BUN/CREATININE RATIO 30.3 (5.4-32.0); CALCIUM 8.9 MG/DL (8.5-10.1); CHLORIDE 110 MMOL/L (99-107); CREATININE 0.76 MG/DL (0.60-1.10); GLUCOSE 149 MG/DL (70-104); SODIUM 143 MMOL/L (135-145); TOTAL CARBON DIOXIDE 24.3 MMOL/L (24-32); eGFR > 90 ML/MIN
[2019-02-02] MEDS: ipratropium/albuterol 3ml nebule NEB SCH ×6 (03:57→23:05)
[2019-02-02] MEDS: sodium chloride 0.45% 1,000 ML IV SCH (07:31)
--- NOTE | 2019-02-02 07:55 | NUR ---
ST paged for BSS
[2019-02-02] MEDS: docusate sodium 100mg/10ml UD cup PO SCH ×2 (08:00→20:00)
--- NOTE | 2019-02-02 08:05 | NUR ---
Tube feed increased to 80 per orders
[2019-02-02] MEDS ORDERED: diltiazem 5mg/ml 5ml inj. IV ONE (08:40)
[2019-02-02] MEDS ORDERED: diltiazem-D5W 125mg/125ml 125 ML IV SCH (08:40)
[2019-02-02] MEDS: pantoprazole 40mg Tablet.DR PO SCH (09:48)
[2019-02-02] MEDS: ticagrelor 90mg tablet PO SCH ×2 (09:48→20:38)
[2019-02-02] MEDS: atorvastatin 10mg tablet PO SCH (09:48)
[2019-02-02] MEDS: aspirin 81mg tab.chew PO SCH (09:48)
[2019-02-02] MEDS ORDERED: NORT25CA PO (09:59)
[2019-02-02 11:11] LABS: ABG BASE EXCESS -2.1 mmol/L (-2.0-3.0); ABG HCO3 20.4 mmol/L (22.0-26.0); ABG OXYGEN SATURATION 95.6 % (95-98); ABG PH (T) 7.469 (7.350-7.450); ABG PO2 (T) 85.2 mmHg (83-108); ALLEN'S TEST Positive; FCOHb 0.3 % (0.5-1.5); FMetHb 0.1 % (0.3-1.12); FO2Hb 95.2 % (94-100); PATIENT TEMPERATURE 37.6; TOTAL HEMOGLOBIN 11.2 G/dl (14.0-18.0)
--- NOTE | 2019-02-02 11:42 | NUR ---
Spoke with stroke nurse tali, and she reports that nita is setting up the tele psych machine and should be up shortly
[2019-02-02 16:23] LABS: POTASSIUM 4.1 MMOL/L (3.5-5.1); PREALBUMIN 11.3 MG/DL (19-36)
--- NOTE | 2019-02-02 20:30 | NUR ---
neurologist consulted via tele med device after an assesment and a few questions he made some recommendations, they were faxed to us and put in the chart, Willa Hoskins was notified
[2019-02-02] MEDS: donepezil 5mg tablet PO SCH (20:38)
[2019-02-02] MEDS: nortriptyline 25mg capsule PO SCH (20:38)
[2019-02-02] MEDS: losartan 25mg tablet PO SCH (20:39)
[2019-02-03] VITALS (23 sets, daily range): BP systolic 107–161; BP diastolic 31–61
[2019-02-03] MEDS: guaiFENesin 200 MG/10 ML oral syrup UD cup PO SCH ×4 (02:00→20:30)
--- NOTE | 2019-02-03 02:12 | NUR ---
Patient in room ICU 2039. I have received report from Renan Coe RN and had the opportunity to ask questions and assume patient care. Addendum: 02/03/19 at 0214 by Aubrey Matias RN note meant for 1899 on 02/02
[2019-02-03 02:57] LABS: BASOPHILS # (AUTO) 0.1 X10'3 (0-0.2); BASOPHILS % (AUTO) 1.2 % (0-1); EOSINOPHILS # (AUTO) 0.7 X10'3 (0-0.9); EOSINOPHILS % (AUTO) 6.1 % (0-6); HEMATOCRIT 28.5 % (42.0-52.0); HEMOGLOBIN 9.6 g/dl (14.0-17.9); LYMPHOCYTES # (AUTO) 1.4 X10'3 (1.1-4.8); MEAN CORPUSCULAR HEMOGLOBIN 31.1 PG (27.0-31.0); MEAN CORPUSCULAR HGB CONC 33.6 g/dL (33.0-36.5); MEAN CORPUSCULAR VOLUME 92.6 FL (78-98); MEAN PLATELET VOLUME 8.5 FL (7.4-10.4); MONOCYTES # (AUTO) 0.8 X10'3 (0-0.9); MONOCYTES % (AUTO) 6.8 % (2-12); NEUTROPHILS # (AUTO) 9.2 X10'3 (1.8-7.7); NEUTROPHILS % (AUTO) 74.9 % (42-75); PLATELET COUNT 272 X10'3 (140-440); RED BLOOD COUNT 3.07 X10'6 (4.70-6.10); RED CELL DISTRIBUTION WIDTH 13.7 % (11.5-14.5); WHITE BLOOD COUNT 12.3 X10'3 (4.5-11.0)
[2019-02-03 03:14] LABS: ALBUMIN 2.4 G/DL (3.4-5.0); ANION GAP 11 (8-16); BLOOD UREA NITROGEN 26 MG/DL (7-18); BUN/CREATININE RATIO 32.1 (5.4-32.0); CHLORIDE 109 MMOL/L (99-107); CREATININE 0.81 MG/DL (0.60-1.10); GLUCOSE 144 MG/DL (70-104); POTASSIUM 4.1 MMOL/L (3.5-5.1); SODIUM 143 MMOL/L (135-145); eGFR > 90 ML/MIN
[2019-02-03] MEDS: ipratropium/albuterol 3ml nebule NEB SCH ×6 (03:21→22:35)
--- NOTE | 2019-02-03 06:30 | NUR ---
Patient in room ICU 2039. I have received report from elpidio and had the opportunity to ask questions and assume patient care.
[2019-02-03] MEDS: atorvastatin 20mg tablet PO SCH (09:38)
[2019-02-03] MEDS: docusate sodium 100mg/10ml UD cup PO SCH ×2 (09:38→20:00)
[2019-02-03] MEDS: ticagrelor 90mg tablet PO SCH ×2 (09:38→20:30)
[2019-02-03] MEDS: aspirin 81mg tab.chew PO SCH (09:38)
[2019-02-03] MEDS: pantoprazole 40mg Tablet.DR PO SCH (09:39)
--- NOTE | 2019-02-03 10:00 | NUR ---
dr martínez dcd epicardial wires from pacer- hr 50's to 60's a flutter. pt sleepy, will arouse to name. when asked where [place] was- [place] reoriented pt frequently. 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 able to left up left arm weakly to chest. mumbles inappropriately- daughter states that he is dreaming. took some thickened liquid.
--- NOTE | 2019-02-03 12:47 | NUR ---
Extended PIV inserted to the left upper arm cephalic vein x 2 attempts using ultrasound. Miles well Addendum: 02/03/19 at 1248 by Kandi Kinney RN Amended: Links added.
--- NOTE | 2019-02-03 13:25 | NUR ---
cl dcd per mds orders. pt here and dangled pt- tolerated fair.
[2019-02-03] MEDS: sodium chloride 0.45% 1,000 ML IV SCH (16:23)
[2019-02-03] MEDS ORDERED: glucagon, human recombinant 1mg kit SUBCUT PRN (18:00)
[2019-02-03] MEDS ORDERED: dextrose ORAL solution 15 GM/59 ML bottle PO PRN ×2 (18:00)
[2019-02-03] MEDS ORDERED: dextrose 50%-water 50ml dispensing syringe IV PRN ×2 (18:00)
--- NOTE | 2019-02-03 19:00 | NUR ---
Patient in room ICU 2039. I have received report from Yeimi Stephens RN and had the opportunity to ask questions and assume patient care.
[2019-02-03] MEDS: donepezil 5mg tablet PO SCH (20:30)
[2019-02-03] MEDS: nortriptyline 25mg capsule PO SCH (20:31)
[2019-02-03] MEDS: losartan 25mg tablet PO SCH (20:31)
[2019-02-03] MEDS: insulin regular, human vial - multi-dose SQ SCH (20:49)
[2019-02-03] MEDS: insulin glargine (Lantus) pen - multi-dose SQ SCH (20:50)
[2019-02-04] VITALS (23 sets, daily range): BP systolic 98–137; BP diastolic 28–88
[2019-02-04] MEDS: insulin regular, human vial - multi-dose SQ SCH ×4 (02:36→20:56)
[2019-02-04] MEDS: guaiFENesin 200 MG/10 ML oral syrup UD cup PO SCH ×4 (02:38→20:39)
[2019-02-04] MEDS: ipratropium/albuterol 3ml nebule NEB SCH ×6 (03:23→23:00)
[2019-02-04 03:41] LABS: BASOPHILS # (AUTO) 0.1 X10'3 (0-0.2); BASOPHILS % (AUTO) 0.5 % (0-1); EOSINOPHILS # (AUTO) 0.7 X10'3 (0-0.9); EOSINOPHILS % (AUTO) 4.6 % (0-6); HEMATOCRIT 28.7 % (42.0-52.0); HEMOGLOBIN 9.4 g/dl (14.0-17.9); LYMPHOCYTES # (AUTO) 1.3 X10'3 (1.1-4.8); LYMPHOCYTES % (AUTO) 9.5 % (21-51); MEAN CORPUSCULAR HEMOGLOBIN 30.6 PG (27.0-31.0); MEAN CORPUSCULAR HGB CONC 32.6 g/dL (33.0-36.5); MEAN CORPUSCULAR VOLUME 93.7 FL (78-98); MEAN PLATELET VOLUME 8.6 FL (7.4-10.4); MONOCYTES # (AUTO) 0.9 X10'3 (0-0.9); MONOCYTES % (AUTO) 6.6 % (2-12); NEUTROPHILS # (AUTO) 11.1 X10'3 (1.8-7.7); NEUTROPHILS % (AUTO) 78.8 % (42-75); PLATELET COUNT 281 X10'3 (140-440); RED BLOOD COUNT 3.07 X10'6 (4.70-6.10); RED CELL DISTRIBUTION WIDTH 14.1 % (11.5-14.5); WHITE BLOOD COUNT 14.1 X10'3 (4.5-11.0)
[2019-02-04 03:47] LABS: ALBUMIN 2.4 G/DL (3.4-5.0); ANION GAP 8 (8-16); BLOOD UREA NITROGEN 33 MG/DL (7-18); BUN/CREATININE RATIO 39.3 (5.4-32.0); CHLORIDE 110 MMOL/L (99-107); CREATININE 0.84 MG/DL (0.60-1.10); GLUCOSE 152 MG/DL (70-104); LDL CHOLESTEROL 66 MG/DL (50-100); MAGNESIUM 2.2 MG/DL (1.5-2.4); POTASSIUM 4.4 MMOL/L (3.5-5.1); SODIUM 143 MMOL/L (135-145); TOTAL CARBON DIOXIDE 24.8 MMOL/L (24-32); eGFR 88 ML/MIN
--- NOTE | 2019-02-04 07:00 | NUR ---
Patient in room ICU 2039. I have received report from Dennis LEWIS and had the opportunity to ask questions and assume patient care.
[2019-02-04] MEDS: ticagrelor 90mg tablet PO SCH ×2 (08:00→20:39)
[2019-02-04] MEDS: docusate sodium 100mg/10ml UD cup PO SCH ×2 (08:00→20:00)
[2019-02-04] MEDS: aspirin 81mg tab.chew PO SCH (09:03)
[2019-02-04] MEDS: pantoprazole 40mg Tablet.DR PO SCH (09:11)
[2019-02-04] MEDS: atorvastatin 20mg tablet PO SCH (09:11)
--- NOTE | 2019-02-04 10:26 | NUR ---
Reassessment: Pt continues with TF at goal rate and tolerating with low residuals 3-15 mL. Per WAGE ANALYST 4/4 pt tolerating pureed foods with nectar thick liquids and recommends continuing with this diet. Patient's PO intake seems to have digressed with first PO meal 75% and documented intake 0% at breakfast this morning. Recommend continuing with TF until pt able to meet nutrient needs with PO intake 65% or greater of meals consistently. Per physical assessment pt A/O x 1 and confused, s/p CABG education not appropriate at this time. LBM 4/5. Will continue to follow. Rec: 1. Continue tube feeding per NG tube with Glucerna 1.2 at goal rate of 95 ml/hr will provide total volume 2280 ml, 2736 cals, 137 gm protein, and 1832 ml free water. Continue TF until patient eats at least 65% of pureed meal. 2. Continue pureed, carb controlled, nectar thick liquid diet per WAGE ANALYST 3. While receiving TF continue additional 150 ml water flush q 4 hours; Prealbumin q Wednesday and 4. Continue routine bowel care 5. Daily weight 6. Advance diet as medically indicated to no concentrated sweets per WAGE ANALYST recommendations, currently patient on pureed meals with nectar thick liquids Addendum: 02/04/19 at [address] Amended: Links added.
--- NOTE | 2019-02-04 18:08 | NUR ---
Problems reprioritized. Patient report given, questions answered & plan of care reviewed with Sandee michel.
[2019-02-04] MEDS: acetaminophen 325mg/10.15ml oral unit dose solution PO PRN (19:30)
--- NOTE | 2019-02-04 20:30 | NUR ---
Pt c/o new onset severe left sided headache at shift change, approx 18:30. No other symptoms or c/o pain, considering pts hospital course & recent history, I called Dr. Cha. He advised me to call the consumer affairs director for this pain issue. I contacted Alicia Sage just after 1900, who was also concerned with the possibility of this being a new neuro-related symptom. She was at the bedside to assess pt within 5 minutes of phone call. November consulted Dr. Breen, STAT head CT ordered & Tylenol given at 1930. Dr. Breen at bedside after returning from CT at approx 1999. CT did not show any changes when correlated with previous MRI of head completed at 11am today. Pt states his head still hurts, medicine helped "just a tiny bit". TeleNeuro consult results were reviewed by November, team will continue to monitor pt closely overnight. Possible repeat of TeleNeuro exam indicated for follow-up tomorrow. Hansa Short RN
[2019-02-04] MEDS: donepezil 5mg tablet PO SCH (20:39)
[2019-02-04] MEDS: losartan 25mg tablet PO SCH (20:40)
[2019-02-04] MEDS: nortriptyline 25mg capsule PO SCH (20:40)
[2019-02-04] MEDS: insulin glargine (Lantus) pen - multi-dose SQ SCH (20:57)
[2019-02-05] VITALS (24 sets, daily range): BP systolic 119–148; BP diastolic 31–50
[2019-02-05] MEDS: guaiFENesin 200 MG/10 ML oral syrup UD cup PO SCH ×4 (01:26→20:16)
[2019-02-05] MEDS: acetaminophen 325mg/10.15ml oral unit dose solution PO PRN ×2 (01:27→12:12)
[2019-02-05] MEDS: insulin regular, human vial - multi-dose SQ SCH ×4 (02:19→21:37)
[2019-02-05] MEDS: ipratropium/albuterol 3ml nebule NEB SCH ×6 (02:23→23:14)
--- NOTE | 2019-02-05 06:39 | NUR ---
Patient in room ICU 2039. I have received report from JOSHUA Santo and had the opportunity to ask questions and assume patient care.
[2019-02-05] MEDS: pantoprazole 40mg Tablet.DR PO SCH (07:46)
[2019-02-05] MEDS: aspirin 81mg tab.chew PO SCH (07:46)
[2019-02-05] MEDS: ticagrelor 90mg tablet PO SCH ×2 (07:46→20:16)
[2019-02-05] MEDS: atorvastatin 20mg tablet PO SCH (07:47)
[2019-02-05] MEDS: docusate sodium 100mg/10ml UD cup PO SCH ×2 (07:47→20:16)
--- NOTE | 2019-02-05 08:00 | NUR ---
OLE Vila at bedside. Notified provider of periodic episodes of bradycardia, heart rate dropping to upper 30s-40s with immediate recovery to 50s-60s.
[2019-02-05 12:10] LABS: BASOPHILS # (AUTO) 0.1 X10'3 (0-0.2); BASOPHILS % (AUTO) 0.6 % (0-1); EOSINOPHILS # (AUTO) 0.6 X10'3 (0-0.9); EOSINOPHILS % (AUTO) 3.5 % (0-6); HEMATOCRIT 29.8 % (42.0-52.0); HEMOGLOBIN 9.7 g/dl (14.0-17.9); MEAN CORPUSCULAR HEMOGLOBIN 30.7 PG (27.0-31.0); MEAN CORPUSCULAR HGB CONC 32.5 g/dL (33.0-36.5); MEAN CORPUSCULAR VOLUME 94.4 FL (78-98); MEAN PLATELET VOLUME 8.5 FL (7.4-10.4); MONOCYTES # (AUTO) 0.8 X10'3 (0-0.9); MONOCYTES % (AUTO) 4.6 % (2-12); NEUTROPHILS # (AUTO) 13.1 X10'3 (1.8-7.7); NEUTROPHILS % (AUTO) 79.3 % (42-75); PLATELET COUNT 330 X10'3 (140-440); RED BLOOD COUNT 3.15 X10'6 (4.70-6.10); RED CELL DISTRIBUTION WIDTH 14.3 % (11.5-14.5); WHITE BLOOD COUNT 16.5 X10'3 (4.5-11.0)
[2019-02-05 12:19] LABS: ALBUMIN 2.5 G/DL (3.4-5.0); ANION GAP 5 (8-16); BLOOD UREA NITROGEN 32 MG/DL (7-18); CALCIUM 8.8 MG/DL (8.5-10.1); CHLORIDE 108 MMOL/L (99-107); CREATININE 0.94 MG/DL (0.60-1.10); GLUCOSE 137 MG/DL (70-104); POTASSIUM 4.3 MMOL/L (3.5-5.1); SODIUM 140 MMOL/L (135-145); TOTAL CARBON DIOXIDE 26.8 MMOL/L (24-32); eGFR 78 ML/MIN
[2019-02-05 12:34] LABS: ANISOCYTOSIS 1+; NUCLEATED RED BLOOD CELLS 1 /100WBC (0-0); PLATELET ESTIMATE NORMAL; TOTAL CELLS COUNTED 100
--- NOTE | 2019-02-05 16:00 | NUR ---
Dr. Cha at bedside, notified of periodic episodes of bradycardia down to upper 30s-40s with immediate return to 50s-60s. Will continue to closely monitor.
--- NOTE | 2019-02-05 18:22 | NUR ---
Problems reprioritized. Patient report given, questions answered & plan of care reviewed with JOSHUA Whaley.
[2019-02-05] MEDS: donepezil 5mg tablet PO SCH (21:27)
[2019-02-05] MEDS: losartan 25mg tablet PO SCH (21:27)
[2019-02-05] MEDS: nortriptyline 25mg capsule PO SCH (21:28)
[2019-02-05] MEDS: insulin glargine (Lantus) pen - multi-dose SQ SCH (21:38)
[2019-02-06] VITALS (24 sets, daily range): BP systolic 105–144; BP diastolic 30–85
[2019-02-06] MEDS: guaiFENesin 200 MG/10 ML oral syrup UD cup PO SCH ×4 (02:36→21:04)
[2019-02-06] MEDS: insulin regular, human vial - multi-dose SQ SCH ×4 (03:05→21:12)
[2019-02-06] MEDS: ipratropium/albuterol 3ml nebule NEB SCH ×6 (03:07→23:14)
--- NOTE | 2019-02-06 07:19 | NUR ---
Patient in room ICU 2039. I have received report from JOSHUA Whaley and had the opportunity to ask questions and assume patient care.
[2019-02-06] MEDS: docusate sodium 100mg/10ml UD cup PO SCH ×2 (08:00→21:04)
[2019-02-06 08:54] LABS: BASOPHILS # (AUTO) 0.1 X10'3 (0-0.2); BASOPHILS % (AUTO) 0.5 % (0-1); EOSINOPHILS # (AUTO) 0.5 X10'3 (0-0.9); EOSINOPHILS % (AUTO) 2.7 % (0-6); HEMATOCRIT 29.2 % (42.0-52.0); HEMOGLOBIN 9.7 g/dl (14.0-17.9); LYMPHOCYTES # (AUTO) 1.9 X10'3 (1.1-4.8); LYMPHOCYTES % (AUTO) 9.9 % (21-51); MEAN CORPUSCULAR HEMOGLOBIN 31.2 PG (27.0-31.0); MEAN CORPUSCULAR HGB CONC 33.2 g/dL (33.0-36.5); MEAN CORPUSCULAR VOLUME 94.1 FL (78-98); MEAN PLATELET VOLUME 8.6 FL (7.4-10.4); MONOCYTES # (AUTO) 1.1 X10'3 (0-0.9); MONOCYTES % (AUTO) 5.8 % (2-12); NEUTROPHILS # (AUTO) 15.5 X10'3 (1.8-7.7); NEUTROPHILS % (AUTO) 81.1 % (42-75); PLATELET COUNT 308 X10'3 (140-440); RED CELL DISTRIBUTION WIDTH 14.2 % (11.5-14.5); WHITE BLOOD COUNT 19.1 X10'3 (4.5-11.0)
[2019-02-06] MEDS: aspirin 81mg tab.chew PO SCH (08:56)
[2019-02-06] MEDS: ticagrelor 90mg tablet PO SCH ×2 (08:56→21:05)
[2019-02-06] MEDS: pantoprazole 40mg Tablet.DR PO SCH (08:56)
[2019-02-06] MEDS: atorvastatin 20mg tablet PO SCH (09:04)
--- NOTE | 2019-02-06 18:05 | NUR ---
Problems reprioritized. Patient report given, questions answered & plan of care reviewed with oncoming RN.
--- NOTE | 2019-02-06 18:35 | NUR ---
Received patient report from Norbert Villa RN.
[2019-02-06] MEDS: losartan 25mg tablet PO SCH (21:05)
[2019-02-06] MEDS: donepezil 5mg tablet PO SCH (21:05)
[2019-02-06] MEDS: nortriptyline 25mg capsule PO SCH (21:05)
[2019-02-06] MEDS: insulin glargine (Lantus) pen - multi-dose SQ SCH (21:15)
[2019-02-07] VITALS (24 sets, daily range): BP systolic 107–144; BP diastolic 36–62
[2019-02-07] MEDS: insulin regular, human vial - multi-dose SQ SCH ×4 (02:57→19:08)
[2019-02-07] MEDS: guaiFENesin 200 MG/10 ML oral syrup UD cup PO SCH ×4 (03:01→19:56)
[2019-02-07] MEDS: ipratropium/albuterol 3ml nebule NEB SCH ×6 (03:26→23:21)
[2019-02-07 03:37] LABS: BASOPHILS # (AUTO) 0.1 X10'3 (0-0.2); BASOPHILS % (AUTO) 0.5 % (0-1); EOSINOPHILS # (AUTO) 0.6 X10'3 (0-0.9); HEMATOCRIT 30.2 % (42.0-52.0); HEMOGLOBIN 9.9 g/dl (14.0-17.9); LYMPHOCYTES # (AUTO) 1.8 X10'3 (1.1-4.8); LYMPHOCYTES % (AUTO) 9.7 % (21-51); MEAN CORPUSCULAR HEMOGLOBIN 30.7 PG (27.0-31.0); MEAN CORPUSCULAR HGB CONC 32.9 g/dL (33.0-36.5); MEAN CORPUSCULAR VOLUME 93.5 FL (78-98); MEAN PLATELET VOLUME 8.8 FL (7.4-10.4); MONOCYTES # (AUTO) 1.2 X10'3 (0-0.9); MONOCYTES % (AUTO) 6.6 % (2-12); NEUTROPHILS % (AUTO) 80.2 % (42-75); PLATELET COUNT 300 X10'3 (140-440); RED BLOOD COUNT 3.22 X10'6 (4.70-6.10); RED CELL DISTRIBUTION WIDTH 14.8 % (11.5-14.5); WHITE BLOOD COUNT 18.7 X10'3 (4.5-11.0)
[2019-02-07 03:52] LABS: ALBUMIN 2.4 G/DL (3.4-5.0); ANION GAP 6 (8-16); BLOOD UREA NITROGEN 36 MG/DL (7-18); CALCIUM 8.7 MG/DL (8.5-10.1); CHLORIDE 109 MMOL/L (99-107); CREATININE 0.75 MG/DL (0.60-1.10); GLUCOSE 116 MG/DL (70-104); SODIUM 141 MMOL/L (135-145); TOTAL CARBON DIOXIDE 25.8 MMOL/L (24-32); eGFR > 90 ML/MIN
--- NOTE | 2019-02-07 06:18 | NUR ---
Pt report given to Yara LEWIS
[2019-02-07] MEDS: docusate sodium 100mg/10ml UD cup PO SCH ×2 (07:35→19:55)
[2019-02-07] MEDS: atorvastatin 20mg tablet PO SCH (07:35)
[2019-02-07] MEDS: ticagrelor 90mg tablet PO SCH ×2 (07:35→19:56)
[2019-02-07] MEDS: pantoprazole 40mg Tablet.DR PO SCH (07:36)
[2019-02-07] MEDS: aspirin 81mg tab.chew PO SCH (07:36)
--- NOTE | 2019-02-07 15:44 | NUR ---
Calorie Count Consult: D/w with bedside RN and MD recommendation to decrease patient's tube feedings to 45 ml/hr using glucerna 1.2 in view of patient's PO intake improving. Continues on pureed diet with nectar thick liquids. Patient ate 50% of lunch today. Per Bedside RN patient is somnolent in the morning and unable to eat breakfast however around noon he wakes up and is alert enough to eat. Evening meal intake is 50-74%. LBM 4/5. Recommend to continue tube feedings at 45 ml/hr until patient is eating >65% consistently of meals. Will conduct calorie count for three days. Pt is s/p CABG and has wound healing needs. Will continue to follow. Rec: 1. Decrease continuous tube feeding per NG tube with Glucerna 1.2 at goal rate of 45 ml/hr will provide total volume 960 ml, 1296 cals, 65 gm protein, and 869 ml free water. Continue TF until patient eats at least 65% of pureed meal. 2. Continue pureed, carb controlled, nectar thick liquid diet per SHAPER OPERATOR 3. While receiving TF continue additional 150 ml water flush q 4 hours; Prealbumin q Wednesday and 4. Continue routine bowel care 5. Daily weight 6. Advance diet as medically indicated to no concentrated sweets per SHAPER OPERATOR recommendations, currently patient on pureed meals with nectar thick liquids Addendum: 02/07/19 at [address] Amended: Links added.
--- NOTE | 2019-02-07 18:30 | NUR ---
Patient in room ICU 2039. I have received report from JOSHUA Livingston and had the opportunity to ask questions and assume patient care. Patient is sitting up in bed with nurse feeding him dinner, he is not eating much only juice and pears, refuses the rest. I will continue to monitor.
[2019-02-07] MEDS: losartan 25mg tablet PO SCH (19:56)
[2019-02-07] MEDS: donepezil 5mg tablet PO SCH (19:56)
[2019-02-07] MEDS: nortriptyline 25mg capsule PO SCH (19:56)
[2019-02-07] MEDS: insulin glargine (Lantus) pen - multi-dose SQ SCH (21:16)
[2019-02-08] VITALS (24 sets, daily range): BP systolic 112–162; BP diastolic 34–87
[2019-02-08] MEDS: guaiFENesin 200 MG/10 ML oral syrup UD cup PO SCH ×2 (02:00→08:31)
[2019-02-08] MEDS: ipratropium/albuterol 3ml nebule NEB SCH ×6 (02:41→23:57)
[2019-02-08 05:44] LABS: BASOPHILS # (AUTO) 0.1 X10'3 (0-0.2); BASOPHILS % (AUTO) 0.5 % (0-1); EOSINOPHILS # (AUTO) 0.5 X10'3 (0-0.9); EOSINOPHILS % (AUTO) 3.3 % (0-6); LYMPHOCYTES # (AUTO) 1.8 X10'3 (1.1-4.8); LYMPHOCYTES % (AUTO) 11.4 % (21-51); MEAN CORPUSCULAR HEMOGLOBIN 31.6 PG (27.0-31.0); MEAN CORPUSCULAR HGB CONC 33.3 g/dL (33.0-36.5); MEAN CORPUSCULAR VOLUME 94.9 FL (78-98); MEAN PLATELET VOLUME 9.2 FL (7.4-10.4); MONOCYTES % (AUTO) 6.3 % (2-12); NEUTROPHILS # (AUTO) 12.6 X10'3 (1.8-7.7); NEUTROPHILS % (AUTO) 78.5 % (42-75); PLATELET COUNT 306 X10'3 (140-440); RED BLOOD COUNT 3.16 X10'6 (4.70-6.10); RED CELL DISTRIBUTION WIDTH 15.1 % (11.5-14.5); WHITE BLOOD COUNT 16.1 X10'3 (4.5-11.0)
[2019-02-08 05:54] LABS: ALBUMIN 2.4 G/DL (3.4-5.0); ANION GAP 7 (8-16); BLOOD UREA NITROGEN 33 MG/DL (7-18); BUN/CREATININE RATIO 41.3 (5.4-32.0); CALCIUM 8.9 MG/DL (8.5-10.1); CHLORIDE 109 MMOL/L (99-107); GLUCOSE 126 MG/DL (70-104); POTASSIUM 3.9 MMOL/L (3.5-5.1); SODIUM 141 MMOL/L (135-145); eGFR > 90 ML/MIN
--- NOTE | 2019-02-08 06:18 | NUR ---
Problems reprioritized. Patient report given, questions answered & plan of care reviewed with JOSHUA Small.
--- NOTE | 2019-02-08 06:25 | NUR ---
Patient in room ICU 2039. I have received report from JOSHUA Lacey and had the opportunity to ask questions and assume patient care.
[2019-02-08 06:55] LABS: PLATELET ESTIMATE NORMAL; POLYCHROMASIA FEW
[2019-02-08] MEDS: docusate sodium 100mg/10ml UD cup PO SCH ×2 (06:57→20:06)
[2019-02-08] MEDS: atorvastatin 20mg tablet PO SCH (08:31)
[2019-02-08] MEDS: pantoprazole 40mg Tablet.DR PO SCH (08:31)
[2019-02-08] MEDS: ticagrelor 90mg tablet PO SCH ×2 (08:31→20:06)
[2019-02-08] MEDS: insulin regular, human vial - multi-dose SQ SCH (08:35)
[2019-02-08] MEDS: aspirin 81mg tab.chew PO SCH (08:36)
--- NOTE | 2019-02-08 11:52 | NUR ---
Follow-up: Patient's calorie intake yesterday discussed with RN and MD, nursing reports patient does well with drinking fluids versus eating, discussed at rounds and with dietary to send thickened shake with magic cup and nectar thick milk. Supper last night and breakfast this morning was refused. PO intake will be encouraged when patient is awake. Pt is s/p CABG and has wound healing needs. Will continue to follow. Rec: 1. Decrease continuous tube feeding per NG tube with Glucerna 1.2 at goal rate of 45 ml/hr will provide total volume 960 ml, 1296 cals, 65 gm protein, and 869 ml free water. Continue TF until patient eats at least 65% of pureed meal. 2. Continue pureed, carb controlled, nectar thick liquid diet per TREE SAPPER- add thickened shake with magic cup and nectar thick milk to lunch and dinner 3. While receiving TF continue additional 150 ml water flush q 4 hours; Prealbumin q Wednesday and 4. Continue routine bowel care 5. Daily weight 6. Advance diet as medically indicated to no concentrated sweets per TREE SAPPER recommendations, currently patient on pureed meals with nectar thick liquids Addendum: 02/08/19 at [address] Amended: Links added.
--- NOTE | 2019-02-08 18:56 | NUR ---
Problems reprioritized. Patient report given, questions answered & plan of care reviewed with JOSHUA Nye.
[2019-02-08] MEDS: insulin glargine (Lantus) pen - multi-dose SQ SCH (21:00)
[2019-02-08] MEDS: losartan 25mg tablet PO SCH (21:11)
[2019-02-08] MEDS: donepezil 5mg tablet PO SCH (21:11)
[2019-02-09] VITALS (19 sets, daily range): BP systolic 107–167; BP diastolic 38–75
[2019-02-09] MEDS: ipratropium/albuterol 3ml nebule NEB SCH ×6 (03:20→23:00)
[2019-02-09 04:42] LABS: BASOPHILS # (AUTO) 0.1 X10'3 (0-0.2); BASOPHILS % (AUTO) 0.5 % (0-1); EOSINOPHILS # (AUTO) 0.4 X10'3 (0-0.9); EOSINOPHILS % (AUTO) 3.3 % (0-6); HEMATOCRIT 30.1 % (42.0-52.0); HEMOGLOBIN 9.9 g/dl (14.0-17.9); LYMPHOCYTES # (AUTO) 2.1 X10'3 (1.1-4.8); LYMPHOCYTES % (AUTO) 15.4 % (21-51); MEAN CORPUSCULAR HEMOGLOBIN 31.1 PG (27.0-31.0); MEAN CORPUSCULAR HGB CONC 32.9 g/dL (33.0-36.5); MEAN CORPUSCULAR VOLUME 94.5 FL (78-98); MEAN PLATELET VOLUME 8.8 FL (7.4-10.4); MONOCYTES # (AUTO) 0.8 X10'3 (0-0.9); NEUTROPHILS # (AUTO) 10.2 X10'3 (1.8-7.7); NEUTROPHILS % (AUTO) 74.8 % (42-75); PLATELET COUNT 322 X10'3 (140-440); RED BLOOD COUNT 3.19 X10'6 (4.70-6.10); RED CELL DISTRIBUTION WIDTH 15.1 % (11.5-14.5); WHITE BLOOD COUNT 13.7 X10'3 (4.5-11.0)
[2019-02-09 04:50] LABS: ALBUMIN 2.4 G/DL (3.4-5.0); ANION GAP 8 (8-16); BLOOD UREA NITROGEN 27 MG/DL (7-18); BUN/CREATININE RATIO 34.6 (5.4-32.0); CALCIUM 8.7 MG/DL (8.5-10.1); CHLORIDE 109 MMOL/L (99-107); CREATININE 0.78 MG/DL (0.60-1.10); GLUCOSE 111 MG/DL (70-104); POTASSIUM 3.9 MMOL/L (3.5-5.1); PREALBUMIN 15.9 MG/DL (19-36); SODIUM 141 MMOL/L (135-145); TOTAL CARBON DIOXIDE 23.8 MMOL/L (24-32); eGFR > 90 ML/MIN
--- NOTE | 2019-02-09 06:30 | NUR ---
Patient in room ICU 2039. I have received report from ritika and had the opportunity to ask questions and assume patient care.
[2019-02-09] MEDS: aspirin 81mg tab.chew PO SCH (08:09)
[2019-02-09] MEDS: ticagrelor 90mg tablet PO SCH ×2 (08:09→20:50)
[2019-02-09] MEDS: pantoprazole 40mg Tablet.DR PO SCH (08:09)
[2019-02-09] MEDS: atorvastatin 20mg tablet PO SCH (08:13)
[2019-02-09] MEDS: docusate sodium 100mg/10ml UD cup PO SCH ×2 (08:14→20:50)
[2019-02-09] MEDS ORDERED: potassium Cl 20 mEq SR tablet PO PRN ×2 (09:15)
[2019-02-09] MEDS ORDERED: magnesium 2GM in 50ml NS 50 ML IV PRN (09:15)
[2019-02-09] MEDS ORDERED: magnesium 4gm in 100ml NS 100 ML IV PRN (09:15)
[2019-02-09] MEDS ORDERED: potassium Cl 40MEQ/NS 500ml 500 ML IV PRN ×2 (09:15)
[2019-02-09] MEDS ORDERED: magnesium Cl slow-release 64mg tablet PO PRN (09:15)
--- NOTE | 2019-02-09 09:34 | NUR ---
pt sleepy, but awakens easily- stated that he couldnt feed himself- but took the tray and ate very well, morem awake today, answers questions. general weakness, left more than right.
--- NOTE | 2019-02-09 12:30 | NUR ---
Follow-up: Patient removed his own corpak yesterday, awoke in the afternoon and ate 50% of his meal, decided he was tired of the corpak and pulled it out. Patient drank 100% of magic cup shake. He verbalized that he enjoyed it, will keep sending. Pt wide awake and alert this morning, ate 100% of protein, 100% of starch/soup. Appetite much improved. Calorie count not warranted at this time. Pt is /p CABG. Will continue to follow. Rec: 1. Continue pureed, carb controlled, nectar thick liquid diet per TECHNICIAN ASSISTANT- add thickened shake with magic cup and nectar thick milk to lunch and dinner 2. Continue routine bowel care 3. Daily weight 4. Advance diet as medically indicated to no concentrated sweets per TECHNICIAN ASSISTANT recommendations, currently patient on pureed meals with nectar thick liquids Addendum: 02/09/19 at [address] Amended: Links added.
--- NOTE | 2019-02-09 14:15 | NUR ---
pt arrived to floor via hospital bed with all belongings. pt tranferred to new bed and attached to cardiac monitoring. VSS; sinus lety.
--- NOTE | 2019-02-09 14:15 | NUR ---
report given to minoo in acce unit- pt transferred by bed to room 316- tolerated well. 2 soft bm's today. segun sommer.
--- NOTE | 2019-02-09 17:57 | NUR ---
bladder scan performed. 370 cc residual. will continue to monitor
--- NOTE | 2019-02-09 18:15 | NUR ---
Patient in room MED 316. I have received report from Micheline and had the opportunity to ask questions and assume patient care.
[2019-02-09] MEDS: magnesium Cl slow-release 64mg tablet PO SCH (20:00)
[2019-02-09] MEDS: potassium Cl 20 mEq SR tablet PO SCH (20:00)
[2019-02-09] MEDS: losartan 25mg tablet PO SCH (20:50)
[2019-02-09] MEDS: donepezil 5mg tablet PO SCH (20:50)
[2019-02-09] MEDS: insulin glargine (Lantus) pen - multi-dose SQ SCH (21:00)
[2019-02-10 02:00] VITALS: BP 131/48
[2019-02-10] MEDS: ipratropium/albuterol 3ml nebule NEB SCH (03:00)
[2019-02-10] MEDS ORDERED: albuterol 2.5 MG/3 ML nebule NEB PRN (03:15)
[2019-02-10 03:41] LABS: BASOPHILS # (AUTO) 0.1 X10'3 (0-0.2); EOSINOPHILS # (AUTO) 0.4 X10'3 (0-0.9); EOSINOPHILS % (AUTO) 3.2 % (0-6); HEMATOCRIT 28.2 % (42.0-52.0); HEMOGLOBIN 9.4 g/dl (14.0-17.9); LYMPHOCYTES # (AUTO) 1.9 X10'3 (1.1-4.8); LYMPHOCYTES % (AUTO) 15.2 % (21-51); MEAN CORPUSCULAR HGB CONC 33.3 g/dL (33.0-36.5); MEAN CORPUSCULAR VOLUME 93.2 FL (78-98); MEAN PLATELET VOLUME 8.8 FL (7.4-10.4); MONOCYTES # (AUTO) 0.7 X10'3 (0-0.9); MONOCYTES % (AUTO) 5.4 % (2-12); NEUTROPHILS # (AUTO) 9.3 X10'3 (1.8-7.7); NEUTROPHILS % (AUTO) 75.2 % (42-75); PLATELET COUNT 304 X10'3 (140-440); RED BLOOD COUNT 3.02 X10'6 (4.70-6.10); RED CELL DISTRIBUTION WIDTH 15.4 % (11.5-14.5); WHITE BLOOD COUNT 12.3 X10'3 (4.5-11.0)
[2019-02-10 03:49] LABS: ALBUMIN 2.2 G/DL (3.4-5.0); ANION GAP 8 (8-16); BLOOD UREA NITROGEN 23 MG/DL (7-18); BUN/CREATININE RATIO 32.4 (5.4-32.0); CALCIUM 8.4 MG/DL (8.5-10.1); CHLORIDE 109 MMOL/L (99-107); CREATININE 0.71 MG/DL (0.60-1.10); GLUCOSE 101 MG/DL (70-104); MAGNESIUM 1.9 MG/DL (1.5-2.4); SODIUM 140 MMOL/L (135-145); TOTAL CARBON DIOXIDE 23.4 MMOL/L (24-32); eGFR > 90 ML/MIN
[2019-02-10 03:50] LABS: POTASSIUM 4.2 MMOL/L (3.5-5.1)
[2019-02-10 06:00] VITALS: BP 128/48
[2019-02-10] MEDS: K and/or MAG REPLACEMENT MC SCH (08:00)
[2019-02-10] MEDS: magnesium Cl slow-release 64mg tablet PO SCH ×2 (08:00→21:04)
[2019-02-10] MEDS: ticagrelor 90mg tablet PO SCH ×2 (08:54→21:04)
[2019-02-10] MEDS: docusate sodium 100mg/10ml UD cup PO SCH ×2 (08:54→21:04)
[2019-02-10] MEDS: aspirin 81mg tab.chew PO SCH (08:54)
[2019-02-10] MEDS: potassium Cl 20 mEq SR tablet PO SCH ×2 (08:54→21:04)
[2019-02-10] MEDS: atorvastatin 20mg tablet PO SCH (08:54)
[2019-02-10] MEDS: pantoprazole 40mg Tablet.DR PO SCH (08:57)
--- NOTE | 2019-02-10 09:00 | NUR ---
bladder scanned pt; 552 residual. notified Kalyan. orders received to place cast.
--- NOTE | 2019-02-10 09:25 | NUR ---
pt unable to swallow slow mag. gave IV mg 4g per Estefanía for Mg of 1.9
[2019-02-10 11:00] VITALS: BP 129/37
--- NOTE | 2019-02-10 11:56 | NUR ---
protocol cast placed. pt tolerated well; 1L of output.
[2019-02-10 15:00] VITALS: BP 138/48
--- NOTE | 2019-02-10 16:33 | NUR ---
Follow-up: Patient ate 222 calories for breakfast this morning. Drinking 100% of magic cup shake total of 353 cals per shake. Appetite is fair, eating average 25-49%, pt being encouraged to eat from entire care team. Pt is s/p CABG, received verbal education to eat protein for wound heal. Will continue to follow. Rec: 1. Continue pureed, carb controlled, nectar thick liquid diet per EXTENSION SERVICE SPECIALIST- add thickened shake with magic cup and nectar thick milk to lunch and dinner 2. Continue routine bowel care 3. Daily weight 4. Advance diet as medically indicated to no concentrated sweets per EXTENSION SERVICE SPECIALIST recommendations, currently patient on pureed meals with nectar thick liquids Addendum: 02/10/19 at [address] Amended: Links added.
[2019-02-10 18:00] VITALS: BP 126/39
--- NOTE | 2019-02-10 18:00 | NUR ---
Patient in room MED 316. I have received report from JOSHUA Tobias and had the opportunity to ask questions and assume patient care.
--- NOTE | 2019-02-10 18:00 | NUR ---
Patient in room MED 316. I have received report from JOSHUA Tobias and had the opportunity to ask questions and assume patient care. Addendum: 02/11/19 at 1910 by Tiffani Rowley RN duplicate documentation.
[2019-02-10] MEDS: insulin glargine (Lantus) pen - multi-dose SQ SCH (20:14)
[2019-02-10] MEDS: losartan 25mg tablet PO SCH (21:04)
[2019-02-10] MEDS: donepezil 5mg tablet PO SCH (21:04)
[2019-02-10 22:00] VITALS: BP 138/46
[2019-02-11 02:00] VITALS: BP 131/40
--- NOTE | 2019-02-11 02:15 | NUR ---
During hourly rounding, I entered this patient's room and found him to have his eyes open and when I spoke to him and told him that it was good to see this change he stated, "that's good". I'm making this note because it is a change in the patient's status since I began my shift with this patient. He is alert and oriented but only times 1. He is still not able to tell me where he is or the time or with regards to events. I will continue to monitor this patient for the duration of this shift.
[2019-02-11 04:04] LABS: ALBUMIN 2.4 G/DL (3.4-5.0); ANION GAP 9 (8-16); BLOOD UREA NITROGEN 21 MG/DL (7-18); BUN/CREATININE RATIO 29.2 (5.4-32.0); CALCIUM 8.7 MG/DL (8.5-10.1); CHLORIDE 110 MMOL/L (99-107); CREATININE 0.72 MG/DL (0.60-1.10); GLUCOSE 110 MG/DL (70-104); MAGNESIUM 2.2 MG/DL (1.5-2.4); POTASSIUM 4.1 MMOL/L (3.5-5.1); SODIUM 141 MMOL/L (135-145); TOTAL CARBON DIOXIDE 21.6 MMOL/L (24-32); eGFR > 90 ML/MIN
[2019-02-11 04:07] LABS: BASOPHILS # (AUTO) 0.1 X10'3 (0-0.2); BASOPHILS % (AUTO) 0.6 % (0-1); EOSINOPHILS # (AUTO) 0.3 X10'3 (0-0.9); EOSINOPHILS % (AUTO) 2.3 % (0-6); HEMATOCRIT 30.6 % (42.0-52.0); HEMOGLOBIN 10.2 g/dl (14.0-17.9); LYMPHOCYTES # (AUTO) 1.7 X10'3 (1.1-4.8); LYMPHOCYTES % (AUTO) 12.7 % (21-51); MEAN CORPUSCULAR HGB CONC 33.2 g/dL (33.0-36.5); MEAN CORPUSCULAR VOLUME 93.4 FL (78-98); MEAN PLATELET VOLUME 8.5 FL (7.4-10.4); MONOCYTES # (AUTO) 0.8 X10'3 (0-0.9); NEUTROPHILS # (AUTO) 10.3 X10'3 (1.8-7.7); NEUTROPHILS % (AUTO) 78.4 % (42-75); PLATELET COUNT 324 X10'3 (140-440); RED BLOOD COUNT 3.27 X10'6 (4.70-6.10); RED CELL DISTRIBUTION WIDTH 15.5 % (11.5-14.5); WHITE BLOOD COUNT 13.1 X10'3 (4.5-11.0)
[2019-02-11 06:00] VITALS: BP 126/43
--- NOTE | 2019-02-11 06:00 | NUR ---
Problems reprioritized. Patient report given, questions answered & plan of care reviewed with Art, RN.
[2019-02-11] MEDS: potassium Cl 20 mEq SR tablet PO SCH ×3 (07:53→20:51)
[2019-02-11] MEDS: ticagrelor 90mg tablet PO SCH ×3 (07:53→20:51)
[2019-02-11] MEDS: aspirin 81mg tab.chew PO SCH (07:53)
[2019-02-11] MEDS: docusate sodium 100mg/10ml UD cup PO SCH ×3 (07:53→20:51)
[2019-02-11] MEDS: magnesium Cl slow-release 64mg tablet PO SCH ×3 (07:54→20:51)
[2019-02-11] MEDS: pantoprazole 40mg Tablet.DR PO SCH (07:54)
[2019-02-11] MEDS: atorvastatin 20mg tablet PO SCH (07:54)
[2019-02-11] MEDS: K and/or MAG REPLACEMENT MC SCH (08:00)
[2019-02-11 10:44] VITALS: BP 148/35
--- NOTE | 2019-02-11 14:03 | NUR ---
Pt had a copious stool that was completely liquified. Sample obtained.
[2019-02-11 15:15] VITALS: BP 138/60
--- NOTE | 2019-02-11 17:03 | NUR ---
reassessment: Pt PO fluctuating 0-50% pureed/NTL meals 25% avg w/ ALOC non-verbal following prior stroke per RN. Not appropriate for verbal CABG ed; pt resting during RD visit so written CABG ed w/ RD contact information left at bedside. LBM 02/09. No documentation of thickened shake PO at this time. Pt not meeting needs for wound healing. May benefit from appetite stimulant per MD approval. Will continue to monitor. Rec: 1. Continue pureed, carb controlled, nectar thick liquid diet per TEXTILE DESIGNS SALES REPRESENTATIVE- add thickened shake with magic cup and nectar thick milk to lunch and dinner 2. Continue routine bowel care 3. Daily weight 4. Advance diet as medically indicated to no concentrated sweets per TEXTILE DESIGNS SALES REPRESENTATIVE recommendations, currently patient on pureed meals with nectar thick liquids Addendum: 02/11/19 at [address] Amended: Links added.
[2019-02-11 18:00] VITALS: BP 146/54
--- NOTE | 2019-02-11 18:00 | NUR ---
Patient in room MED 316. I have received report from Kirk, RN and had the opportunity to ask questions and assume patient care.
[2019-02-11] MEDS: losartan 25mg tablet PO SCH ×2 (20:51→21:00)
[2019-02-11] MEDS: donepezil 5mg tablet PO SCH ×2 (20:51→21:00)
[2019-02-11] MEDS: insulin glargine (Lantus) pen - multi-dose SQ SCH (20:53)
--- NOTE | 2019-02-11 21:14 | NUR ---
During med pass patient refused his medication. When I attempted to give crushed in applesauce the patient began to spit it out of his mouth. Patient is still not opening his eyes and is not speaking except for very few words, 3 at most, and shaking his head. I spoke to him and educated him on the importance of taking his medicine and he opened his mouth and appeared to swallow it. I then gave him another bite of the applesauce with the medicine and he would not swallow it and began spitting it all over his gown. I told the charge nurse, JOSHUA De Leon. I will continue to monitor this patient.
--- NOTE | 2019-02-11 21:15 | NUR ---
Made a call to Shoe Sewing Machine Operator And Tender non destructive testing engineer Juan charles NP. I left a message regarding patient refusing medications and spitting them out. Will continue to monitor patient for duration of shift.
[2019-02-11 22:00] VITALS: BP 137/55
[2019-02-12 02:00] VITALS: BP 123/55
[2019-02-12 05:38] LABS: ALBUMIN 2.3 G/DL (3.4-5.0); ANION GAP 11 (8-16); BASOPHILS # (AUTO) 0.1 X10'3 (0-0.2); BASOPHILS % (AUTO) 0.7 % (0-1); BLOOD UREA NITROGEN 20 MG/DL (7-18); CALCIUM 8.8 MG/DL (8.5-10.1); CHLORIDE 110 MMOL/L (99-107); CREATININE 0.69 MG/DL (0.60-1.10); EOSINOPHILS # (AUTO) 0.2 X10'3 (0-0.9); EOSINOPHILS % (AUTO) 1.4 % (0-6); GLUCOSE 96 MG/DL (70-104); HEMATOCRIT 31.9 % (42.0-52.0); HEMOGLOBIN 10.4 g/dl (14.0-17.9); LYMPHOCYTES # (AUTO) 1.5 X10'3 (1.1-4.8); LYMPHOCYTES % (AUTO) 12.2 % (21-51); MEAN CORPUSCULAR HEMOGLOBIN 30.4 PG (27.0-31.0); MEAN CORPUSCULAR HGB CONC 32.6 g/dL (33.0-36.5); MEAN CORPUSCULAR VOLUME 93.1 FL (78-98); MEAN PLATELET VOLUME 8.6 FL (7.4-10.4); MONOCYTES # (AUTO) 0.7 X10'3 (0-0.9); MONOCYTES % (AUTO) 5.5 % (2-12); NEUTROPHILS # (AUTO) 9.9 X10'3 (1.8-7.7); NEUTROPHILS % (AUTO) 80.2 % (42-75); PLATELET COUNT 315 X10'3 (140-440); POTASSIUM 4.3 MMOL/L (3.5-5.1); RED BLOOD COUNT 3.42 X10'6 (4.70-6.10); RED CELL DISTRIBUTION WIDTH 15.7 % (11.5-14.5); SODIUM 143 MMOL/L (135-145); TOTAL CARBON DIOXIDE 22.3 MMOL/L (24-32); WHITE BLOOD COUNT 12.3 X10'3 (4.5-11.0); eGFR > 90 ML/MIN
[2019-02-12 06:00] VITALS: BP 140/60
--- NOTE | 2019-02-12 06:00 | NUR ---
Problems reprioritized. Patient report given, questions answered & plan of care reviewed with JOSHUA Reinoso.
--- NOTE | 2019-02-12 06:20 | NUR ---
Patient in room MED 316. I have received report from JOSHUA NIEVES, and had the opportunity to ask questions and assume patient care.
[2019-02-12] MEDS: ticagrelor 90mg tablet PO SCH ×2 (07:55→20:07)
[2019-02-12] MEDS: aspirin 81mg tab.chew PO SCH (07:55)
[2019-02-12] MEDS: pantoprazole 40mg Tablet.DR PO SCH (07:55)
[2019-02-12] MEDS: K and/or MAG REPLACEMENT MC SCH (08:00)
[2019-02-12] MEDS: magnesium Cl slow-release 64mg tablet PO SCH ×3 (08:00→20:00)
[2019-02-12] MEDS: potassium Cl 20 mEq SR tablet PO SCH ×3 (08:00→20:00)
[2019-02-12] MEDS: docusate sodium 100mg/10ml UD cup PO SCH ×2 (08:00→20:11)
[2019-02-12] MEDS: atorvastatin 20mg tablet PO SCH (08:00)
[2019-02-12] MEDS ORDERED: furosemide 40mg/4ml inj IV ONE (10:55)
[2019-02-12 11:00] VITALS: BP 158/60
[2019-02-12 15:00] VITALS: BP 132/54
[2019-02-12 15:46] LABS: ALANINE AMINOTRANSFERASE 30 U/L (12-78); ALBUMIN 2.5 G/DL (3.4-5.0); ALBUMIN/GLOBULIN RATIO 0.6 (1.1-1.5); ALKALINE PHOSPHATASE 59 IU/L (46-116); ANION GAP 11 (8-16); ASPARTATE AMINO TRANSFERASE 19 U/L (10-37); BILIRUBIN,TOTAL 0.7 MG/DL (0.1-1.0); BLOOD UREA NITROGEN 22 MG/DL (7-18); BUN/CREATININE RATIO 28.6 (5.4-32.0); CHLORIDE 106 MMOL/L (99-107); CREATININE 0.77 MG/DL (0.60-1.10); GLUCOSE 165 MG/DL (70-104); MAGNESIUM 1.8 MG/DL (1.5-2.4); PHOSPHORUS 3.8 MG/DL (2.3-4.5); POTASSIUM 3.9 MMOL/L (3.5-5.1); SODIUM 139 MMOL/L (135-145); TOTAL CARBON DIOXIDE 21.9 MMOL/L (24-32); TOTAL PROTEIN 6.5 G/DL (6.4-8.2); eGFR > 90 ML/MIN
[2019-02-12] MEDS: potassium Cl 20 mEq SR tablet PO STA ×2 (15:53→16:31)
[2019-02-12] MEDS: magnesium Cl slow-release 64mg tablet PO ONE ×2 (15:55→16:31)
[2019-02-12 18:00] VITALS: BP 153/88
--- NOTE | 2019-02-12 18:00 | NUR ---
Patient in room MED 316. I have received report from JOSHUA Reinoso and had the opportunity to ask questions and assume patient care.
[2019-02-12] MEDS ORDERED: magnesium 1 gm/2ml inj. 1 GM in normal saline 100ml IV soln 100 ML IV ONE (18:05)
[2019-02-12] MEDS ORDERED: Potassium Cl inj 20 MEQ in normal saline 250ml IV soln 250 ML IV ONE (18:05)
[2019-02-12] MEDS ORDERED: DEXTROSE 5% IV ONE (18:10)
[2019-02-12] MEDS ORDERED: MAGNESIUM IV ONE (18:10)
[2019-02-12] MEDS ORDERED: WATER IV ONE (18:10)
[2019-02-12] MEDS: losartan 25mg tablet PO SCH (20:09)
[2019-02-12] MEDS: donepezil 5mg tablet PO SCH (20:10)
[2019-02-12] MEDS: insulin glargine (Lantus) pen - multi-dose SQ SCH (21:00)
[2019-02-12 22:00] VITALS: BP 139/55
[2019-02-13 02:00] VITALS: BP 144/57
--- NOTE | 2019-02-13 04:53 | NUR ---
This patient has been more alert and awake during this shift. This is an improvement from the last 2 shifts with this patient. He has used the call light, although inappropriately (he thought he was changing the channel on the television). He stated that his foot hurt when I lifted it to float on a pillow and I asked him if his pain was new and he state "no", I asked if he had neuropathy and he state "yes". I asked him to open his eyes for me and he did. This was new since I have taken care of him. He was able to tell me his name and his date of correctly but when I asked him if he knew where he was he did say he was in [place] but was not able to state [facility]. He has been awake many times during the night and answered questions appropriately which is an improvement compared to the last two shifts. I will pass this information on to the next shift but I will continue to monitor patient for duration of shift.
[2019-02-13 06:00] VITALS: BP 129/47
--- NOTE | 2019-02-13 06:00 | NUR ---
Problems reprioritized. Patient report given, questions answered & plan of care reviewed with Art, RN.
[2019-02-13 06:45] LABS: ALANINE AMINOTRANSFERASE 35 U/L (12-78); ALBUMIN 2.4 G/DL (3.4-5.0); ALBUMIN/GLOBULIN RATIO 0.6 (1.1-1.5); ALKALINE PHOSPHATASE 54 IU/L (46-116); ANION GAP 11 (8-16); ASPARTATE AMINO TRANSFERASE 21 U/L (10-37); BILIRUBIN,TOTAL 0.8 MG/DL (0.1-1.0); BLOOD UREA NITROGEN 21 MG/DL (7-18); BUN/CREATININE RATIO 28.4 (5.4-32.0); CALCIUM 8.8 MG/DL (8.5-10.1); CHLORIDE 108 MMOL/L (99-107); CREATININE 0.74 MG/DL (0.60-1.10); GLUCOSE 115 MG/DL (70-104); MAGNESIUM 1.9 MG/DL (1.5-2.4); PHOSPHORUS 3.5 MG/DL (2.3-4.5); POTASSIUM 3.8 MMOL/L (3.5-5.1); SODIUM 141 MMOL/L (135-145); TOTAL CARBON DIOXIDE 22.2 MMOL/L (24-32); TOTAL PROTEIN 6.2 G/DL (6.4-8.2); eGFR > 90 ML/MIN
[2019-02-13] MEDS: K and/or MAG REPLACEMENT MC SCH (08:00)
[2019-02-13] MEDS: docusate sodium 100mg/10ml UD cup PO SCH ×2 (08:00→20:40)
[2019-02-13] MEDS: potassium Cl 20 mEq SR tablet PO SCH ×2 (08:16→20:40)
[2019-02-13] MEDS: aspirin 81mg tab.chew PO SCH (08:17)
[2019-02-13] MEDS: magnesium Cl slow-release 64mg tablet PO SCH ×2 (08:17→20:00)
[2019-02-13] MEDS: pantoprazole 40mg Tablet.DR PO SCH (08:17)
[2019-02-13] MEDS: atorvastatin 20mg tablet PO SCH (08:18)
[2019-02-13] MEDS: ticagrelor 90mg tablet PO SCH ×2 (08:18→20:39)
[2019-02-13 11:00] VITALS: BP 139/65
--- NOTE | 2019-02-13 14:12 | NUR ---
Ultrasound to check for DVT is being done.
[2019-02-13 15:00] VITALS: BP 116/47
[2019-02-13 18:00] VITALS: BP 124/60
--- NOTE | 2019-02-13 18:20 | NUR ---
Patient in room MED 316. I have received report from Art and had the opportunity to ask questions and assume patient care.
[2019-02-13] MEDS: losartan 25mg tablet PO SCH (20:39)
[2019-02-13] MEDS: donepezil 5mg tablet PO SCH (20:54)
[2019-02-13] MEDS: insulin glargine (Lantus) pen - multi-dose SQ SCH (21:00)
[2019-02-13 22:00] VITALS: BP 128/52
[2019-02-14] MEDS: acetaminophen 325mg/10.15ml oral unit dose solution PO PRN (00:23)
[2019-02-14 02:00] VITALS: BP 125/51
[2019-02-14 05:51] LABS: ALBUMIN 2.4 G/DL (3.4-5.0); ANION GAP 10 (8-16); BLOOD UREA NITROGEN 23 MG/DL (7-18); BUN/CREATININE RATIO 30.3 (5.4-32.0); CALCIUM 9.1 MG/DL (8.5-10.1); CHLORIDE 109 MMOL/L (99-107); CREATININE 0.76 MG/DL (0.60-1.10); GLUCOSE 115 MG/DL (70-104); MAGNESIUM 1.8 MG/DL (1.5-2.4); POTASSIUM 3.9 MMOL/L (3.5-5.1); SODIUM 142 MMOL/L (135-145); TOTAL CARBON DIOXIDE 22.9 MMOL/L (24-32); eGFR > 90 ML/MIN
[2019-02-14 06:00] VITALS: BP 129/57
[2019-02-14] MEDS: magnesium Cl slow-release 64mg tablet PO SCH ×2 (07:41→21:37)
[2019-02-14] MEDS: potassium Cl 20 mEq SR tablet PO SCH ×2 (07:41→21:37)
[2019-02-14] MEDS: atorvastatin 20mg tablet PO SCH (07:41)
[2019-02-14] MEDS: pantoprazole 40mg Tablet.DR PO SCH (07:41)
[2019-02-14] MEDS: aspirin 81mg tab.chew PO SCH (07:41)
[2019-02-14] MEDS: K and/or MAG REPLACEMENT MC SCH (08:00)
[2019-02-14] MEDS: docusate sodium 100mg/10ml UD cup PO SCH ×2 (08:00→21:37)
[2019-02-14] MEDS: ticagrelor 90mg tablet PO SCH ×2 (08:02→21:37)
[2019-02-14 11:00] VITALS: BP 132/47
[2019-02-14 15:00] VITALS: BP 160/67
--- NOTE | 2019-02-14 15:05 | NUR ---
reassessment: Pt PO remains low 0-25% meals w/ ONS not meeting needs; AOx1 and non-verbal baseline. LBM 02/12. SAAD d/w RN for possibility of appetite stimulant per MD approval given low PO and wound healing needs post-op. Will continue to monitor. Rec: 1. Continue pureed, carb controlled, nectar thick liquid diet per COREMAKER FLOOR- add thickened shake with magic cup and nectar thick milk to lunch and dinner 2. Continue routine bowel care 3. Daily weight 4. encourage PO 5. appetite stimulant per MD approval Addendum: 02/14/19 at [address] Amended: Links added.
--- NOTE | 2019-02-14 17:51 | NUR ---
PATIENT'S DAUGHTER AT BEDSIDE MOST OF AFTERNOON FEEDING PATIENT, HELPING WITH ENCOURAGING PO INTAKE. SUPPORTIVE.
--- NOTE | 2019-02-14 19:30 | NUR ---
Problems reprioritized. Patient report given, questions answered & plan of care reviewed with Holley.
[2019-02-14 20:00] VITALS: BP 146/63
[2019-02-14] MEDS: insulin glargine (Lantus) pen - multi-dose SQ SCH (21:00)
[2019-02-14] MEDS: losartan 25mg tablet PO SCH (21:00)
[2019-02-14] MEDS: donepezil 5mg tablet PO SCH (21:27)
[2019-02-14 22:00] VITALS: BP 127/85
[2019-02-15 05:00] VITALS: BP 161/59
--- NOTE | 2019-02-15 06:58 | NUR ---
Report given to Mary LEWIS.
[2019-02-15 07:08] LABS: ALBUMIN 2.5 G/DL (3.4-5.0); ANION GAP 12 (8-16); BLOOD UREA NITROGEN 21 MG/DL (7-18); BUN/CREATININE RATIO 30.4 (5.4-32.0); CHLORIDE 109 MMOL/L (99-107); CREATININE 0.69 MG/DL (0.60-1.10); GLUCOSE 130 MG/DL (70-104); MAGNESIUM 1.8 MG/DL (1.5-2.4); POTASSIUM 3.8 MMOL/L (3.5-5.1); SODIUM 143 MMOL/L (135-145); TOTAL CARBON DIOXIDE 21.6 MMOL/L (24-32); eGFR > 90 ML/MIN
[2019-02-15] MEDS: K and/or MAG REPLACEMENT MC SCH (08:00)
[2019-02-15] MEDS: ticagrelor 90mg tablet PO SCH ×2 (08:51→19:54)
[2019-02-15] MEDS: potassium Cl 20 mEq SR tablet PO SCH ×2 (08:51→19:54)
[2019-02-15] MEDS: docusate sodium 100mg/10ml UD cup PO SCH ×2 (08:51→19:54)
[2019-02-15] MEDS: magnesium Cl slow-release 64mg tablet PO SCH ×2 (08:51→19:54)
[2019-02-15] MEDS: aspirin 81mg tab.chew PO SCH (08:51)
[2019-02-15] MEDS: atorvastatin 20mg tablet PO SCH (08:52)
[2019-02-15 10:00] VITALS: BP 147/48
[2019-02-15] MEDS: pantoprazole 40mg Tablet.DR PO SCH (10:16)
[2019-02-15 18:00] VITALS: BP 166/62
--- NOTE | 2019-02-15 19:05 | NUR ---
Student documentation: I have reviewed and agree with all interventions, assessments performed and documented by Clarisse TANNER. Student Medication Administration: For this medication-pass time frame, all medication were reviewed, dispensed, administered and documented per hospital policy by Clarisse Jung RN.
[2019-02-15] MEDS: donepezil 5mg tablet PO SCH (20:50)
[2019-02-15] MEDS: losartan 25mg tablet PO SCH (20:50)
[2019-02-15] MEDS: insulin glargine (Lantus) pen - multi-dose SQ SCH (21:00)
[2019-02-15 22:00] VITALS: BP 165/51
[2019-02-16 02:00] VITALS: BP 151/69
[2019-02-16 06:19] LABS: ALBUMIN 2.4 G/DL (3.4-5.0); ANION GAP 12 (8-16); BLOOD UREA NITROGEN 23 MG/DL (7-18); BUN/CREATININE RATIO 33.8 (5.4-32.0); CALCIUM 9.2 MG/DL (8.5-10.1); CHLORIDE 110 MMOL/L (99-107); CREATININE 0.68 MG/DL (0.60-1.10); GLUCOSE 129 MG/DL (70-104); MAGNESIUM 1.8 MG/DL (1.5-2.4); POTASSIUM 3.9 MMOL/L (3.5-5.1); SODIUM 144 MMOL/L (135-145); TOTAL CARBON DIOXIDE 21.6 MMOL/L (24-32); eGFR > 90 ML/MIN
--- NOTE | 2019-02-16 06:30 | NUR ---
I have received patient report from Jaida LEWIS
[2019-02-16 07:01] VITALS: BP 125/67
[2019-02-16] MEDS: K and/or MAG REPLACEMENT MC SCH (08:00)
[2019-02-16] MEDS: ticagrelor 90mg tablet PO SCH ×2 (09:03→21:47)
[2019-02-16] MEDS: docusate sodium 100mg/10ml UD cup PO SCH ×2 (09:03→21:46)
[2019-02-16] MEDS: potassium Cl 20 mEq SR tablet PO SCH ×2 (09:03→21:46)
[2019-02-16] MEDS: aspirin 81mg tab.chew PO SCH (09:03)
[2019-02-16] MEDS: pantoprazole 40mg Tablet.DR PO SCH (09:03)
[2019-02-16] MEDS: atorvastatin 20mg tablet PO SCH (09:03)
[2019-02-16] MEDS: magnesium Cl slow-release 64mg tablet PO SCH ×2 (09:04→21:47)
[2019-02-16] MEDS ORDERED: bisacodyl 10mg suppository rectal RC PRN (09:10)
[2019-02-16 10:00] VITALS: BP 149/54
--- NOTE | 2019-02-16 12:20 | NUR ---
I spoke with Dr. Vargas painter assistant in OR. He told her to make him full code. I ordered aids social worker because other family members have the power of deputy attorney general.
--- NOTE | 2019-02-16 13:56 | NUR ---
reassessment: Pt remains AOx1 w/ PO 25% avg continues to fluctuate. Receiving thickened magic cup shake BIDLD. LBM 02/12; receiving colace and dulcolax added PRN per MD note today. SAAD d/w RN regarding appetite stimulant per MD approval. Will continue to monitor. Rec: 1. Continue pureed, carb controlled, nectar thick liquid diet per COAT MAKER- add thickened shake with magic cup and nectar thick milk to lunch and dinner 2. Continue routine bowel care 3. Daily weight 4. encourage PO 5. appetite stimulant per MD approval Addendum: 02/16/19 at [address] Amended: Links added.
--- NOTE | 2019-02-16 14:54 | NUR ---
I gave Patient report to Arleth LEWIS
[2019-02-16 15:00] VITALS: BP 144/64
--- NOTE | 2019-02-16 15:10 | NUR ---
PATIENT ARRIVED TO ACCE UNIT ROOM 307. FAMILY PRESENT AT BEDSIDE. PATIENT IS AT BASELINE CONFUSION AND DOES NOT SPEAK OR RESPOND- EYES ARE CLOSED. DISCUSSED LAST BOWEL MOVEMENT WHICH WAS ON 02/12 SMALL AND LIQUID. PATIENT ABDOMEN LARGE, SOFT, AND ROUND AND UPON PALPATION HE IS GUARDING WHEN LOWER QUADRANTS ARE PRESSED ON. PATIENT'S FAMILY AGREES TO TRY A SUPPOSITORY TO HELP WITH BM. PATIENT'S DAUGHTER SAYS HE DIDN'T EAT BREAKFAST BUT ATE HOMEMADE SOUP FOR LUNCH SHE BROUGHT FROM HOME. RUTLEDGE CARE PROVIDED WITH 2% CHG RUTLEDGE WIPES. FOAM CHANGED TO RIGHT GLUTEAL PURPLE ESTRADA, GLUTEAL AREA AND COCCYX RED BUT BLANCHABLE.
[2019-02-16 18:00] VITALS: BP 144/64
--- NOTE | 2019-02-16 18:30 | NUR ---
Patient in room MED 307. I have received report from Arleth LEWIS and had the opportunity to ask questions and assume patient care.
[2019-02-16] MEDS: insulin glargine (Lantus) pen - multi-dose SQ SCH (21:00)
[2019-02-16] MEDS: donepezil 5mg tablet PO SCH (21:47)
[2019-02-16] MEDS: losartan 25mg tablet PO SCH (21:47)
[2019-02-16 22:00] VITALS: BP 129/58
[2019-02-17 02:00] VITALS: BP 99/51
--- NOTE | 2019-02-17 06:00 | NUR ---
Patient in room MED 307. I have received report from Jacquelyn Frias RN and had the opportunity to ask questions and assume patient care.
[2019-02-17 07:00] VITALS: BP 102/51
[2019-02-17] MEDS: K and/or MAG REPLACEMENT MC SCH (08:00)
[2019-02-17] MEDS: magnesium Cl slow-release 64mg tablet PO SCH ×2 (08:36→21:09)
[2019-02-17] MEDS: potassium Cl 20 mEq SR tablet PO SCH ×2 (08:36→21:09)
[2019-02-17] MEDS: aspirin 81mg tab.chew PO SCH (08:36)
[2019-02-17] MEDS: ticagrelor 90mg tablet PO SCH ×2 (08:36→21:09)
[2019-02-17] MEDS: docusate sodium 100mg/10ml UD cup PO SCH ×2 (08:36→20:00)
[2019-02-17] MEDS: pantoprazole 40mg Tablet.DR PO SCH (08:37)
[2019-02-17] MEDS: atorvastatin 20mg tablet PO SCH (08:37)
[2019-02-17] MEDS ORDERED: magnesium citrate 296ml oral solution PO ONE (09:25)
[2019-02-17 11:00] VITALS: BP 102/51
[2019-02-17 15:00] VITALS: BP 129/53
[2019-02-17 18:00] VITALS: BP 132/55
--- NOTE | 2019-02-17 18:00 | NUR ---
Patient in room MED 307. I have received report from Marina Stevens and had the opportunity to ask questions and assume patient care.
--- NOTE | 2019-02-17 18:07 | NUR ---
Problems reprioritized. Patient report given, questions answered & plan of care reviewed with Nadine LEWIS.
[2019-02-17] MEDS: insulin glargine (Lantus) pen - multi-dose SQ SCH (19:31)
--- NOTE | 2019-02-17 20:00 | NUR ---
During Assessment, I had the assistance of charge nurse, JOSHUA Whaley, we noticed that there was not urine in the collection bag for the condom catheter in place. I palpated the lower abdomen and felt distention, We then did a bladder scan and noted that the ultrasound registered greater than 600 and the area was covered on the screen, JOSHUA Whaely removed the condom cath and placed a cast under retention rule and measured amount was 325 mLs. Will continue to monitor this patient and will pass on this information to dayshift.
--- NOTE | 2019-02-17 20:00 | NUR ---
During assessment, specifically skin check I observed Left buttock wound. Red area with blackened area at the middle of the wound. Charge nurse JOSHUA Whaley notified and also observed. JOSHUA Whaley confirmed wound care consult ordered for this patient, will continue to monitor and provide wound care to include Therahoney to area and optofoam in place and will continue to offload area and q2h position changes. Will also notify wound care staff nurse, Lyndon Dietrich. Addendum: 02/17/19 at 2158 by Tiffani Rowley RN Contacted inpatient wound care office to report about this wound and left a message for the wound care nurse.
[2019-02-17] MEDS: donepezil 5mg tablet PO SCH (21:09)
[2019-02-17] MEDS: losartan 25mg tablet PO SCH (21:09)
[2019-02-17 22:00] VITALS: BP 144/55
[2019-02-17 22:06] LABS: BASOPHILS # (AUTO) 0.1 X10'3 (0-0.2); BASOPHILS % (AUTO) 1.1 % (0-1); EOSINOPHILS # (AUTO) 0.3 X10'3 (0-0.9); EOSINOPHILS % (AUTO) 2.7 % (0-6); HEMATOCRIT 34.7 % (42.0-52.0); HEMOGLOBIN 11.5 g/dl (14.0-17.9); LYMPHOCYTES % (AUTO) 20.6 % (21-51); MEAN CORPUSCULAR HEMOGLOBIN 30.3 PG (27.0-31.0); MEAN CORPUSCULAR VOLUME 91.8 FL (78-98); MEAN PLATELET VOLUME 8.2 FL (7.4-10.4); MONOCYTES # (AUTO) 0.6 X10'3 (0-0.9); MONOCYTES % (AUTO) 6.2 % (2-12); NEUTROPHILS # (AUTO) 6.7 X10'3 (1.8-7.7); NEUTROPHILS % (AUTO) 69.4 % (42-75); PLATELET COUNT 308 X10'3 (140-440); RED BLOOD COUNT 3.78 X10'6 (4.70-6.10); RED CELL DISTRIBUTION WIDTH 15.1 % (11.5-14.5); WHITE BLOOD COUNT 9.6 X10'3 (4.5-11.0)
[2019-02-17 22:25] LABS: ALANINE AMINOTRANSFERASE 33 U/L (12-78); ALBUMIN 2.4 G/DL (3.4-5.0); ALBUMIN/GLOBULIN RATIO 0.6 (1.1-1.5); ALKALINE PHOSPHATASE 62 IU/L (46-116); ANION GAP 8 (8-16); ASPARTATE AMINO TRANSFERASE 29 U/L (10-37); BILIRUBIN,TOTAL 0.6 MG/DL (0.1-1.0); BLOOD UREA NITROGEN 20 MG/DL (7-18); BUN/CREATININE RATIO 27.8 (5.4-32.0); CALCIUM 9.2 MG/DL (8.5-10.1); CHLORIDE 111 MMOL/L (99-107); CREATININE 0.72 MG/DL (0.60-1.10); GLUCOSE 133 MG/DL (70-104); POTASSIUM 4.5 MMOL/L (3.5-5.1); SODIUM 144 MMOL/L (135-145); TOTAL CARBON DIOXIDE 25.2 MMOL/L (24-32); TOTAL PROTEIN 6.2 G/DL (6.4-8.2); eGFR > 90 ML/MIN
--- NOTE | 2019-02-17 22:27 | NUR ---
Received phone call from Maria Del Carmen, patient's daughter. She is listed as a contact and permission to speak with regarding patient. She stated that she lives [id number] in [place] and that she is flying back and forth to see her dad. She is concerned about what type of care her father will need once he is discharged. She states that she wants to take him to [place] with her to care for him once he is stable. She reported that the patient's brother, Bhavin Cali is a retired nurse who also visits the patient here at the hospital.
[2019-02-18] VITALS (14 sets, daily range): BP systolic 126–155; BP diastolic 51–65
--- NOTE | 2019-02-18 | NUR ---
At approx 2300 Monitor alarmed that patient was in asystole, Charge nurse, JOSHUA Whaley and I ran into the patient's room and woke up the patient and his HR began to return to approx 60 BPM up to 75 BPM. We both stayed with the patient and continued to monitor patient, keeping him awake, watching the monitor and palpating radial pulse. Patient would begin to fall a sleep and begin to have a pause in his HR, this happened approx 5 to 6 more times and we decided at this point to call a rapid response and notify Dr. José. I contacted Dr. José, while Charge nurse remained with patient. Dr. José stated after I gave him a report that this patient needed to have external pacing and a pacemaker placed and to contact the on-call waiter/waitress dining car. I contacted Dr. Quintero at this point and reported the situation to him. By this time the ICU nurse came to our floor and began to take over the rapid, the crash cart place in room, external pacing pads placed on patient and monitor set to pace patient at 40 and Atropine removed from crash cart and prn orders placed in the chart, however Atropine never administered. Dr. Quintero came in and assessed patient and it was determined that pacemaker would be placed right away. Patient's next of kin contacted and patient taken to cathode builder for pacemaker placement.
[2019-02-18] MEDS ORDERED: atropine 0.1mg/ml 10ml syringe IV ONE (00:15)
[2019-02-18] MEDS ORDERED: ceFAZolin 1000mg inj ONE (00:56)
[2019-02-18] MEDS ORDERED: lidocaine 1%/epinephrine 1:100,000 injection 50ml vial ONE (00:57)
[2019-02-18] MEDS ORDERED: cefazolin/dext.iso 2gm/100ml 100 ML IV ONE (00:57)
[2019-02-18] MEDS ORDERED: LIDOcaine 1% w/EPI 1:100,000 30ml vial (MDV) ONE (00:57)
[2019-02-18] MEDS ORDERED: fentaNYL/PF 50MCG/1 ML 2ML syringe ONE (01:02)
--- NOTE | 2019-02-18 01:30 | NUR ---
Surgical team came and took patient from floor to drop crew laborer, patient in stable condition with pacer pads attached. Will await report following surgery.
--- NOTE | 2019-02-18 02:30 | NUR ---
Patient arrived back to the floor, patient is sleeping but stable, Pacemaker in place to the L upper chest, dressing in place (pressure dressing) CDI, vitals stable, will continue to monitor.
--- NOTE | 2019-02-18 03:30 | NUR ---
Patient awoke and asked for a drink of water. He was alert and able to use words to make his needs known. Will continue to monitor patient for duration of shift.
[2019-02-18 05:23] LABS: ALANINE AMINOTRANSFERASE 33 U/L (12-78); ALBUMIN 2.4 G/DL (3.4-5.0); ALBUMIN/GLOBULIN RATIO 0.6 (1.1-1.5); ALKALINE PHOSPHATASE 59 IU/L (46-116); ANION GAP 10 (8-16); ASPARTATE AMINO TRANSFERASE 22 U/L (10-37); BILIRUBIN,TOTAL 0.5 MG/DL (0.1-1.0); BLOOD UREA NITROGEN 19 MG/DL (7-18); BUN/CREATININE RATIO 27.1 (5.4-32.0); CHLORIDE 111 MMOL/L (99-107); GLUCOSE 128 MG/DL (70-104); MAGNESIUM 2.1 MG/DL (1.5-2.4); POTASSIUM 4.3 MMOL/L (3.5-5.1); SODIUM 145 MMOL/L (135-145); TOTAL CARBON DIOXIDE 24.1 MMOL/L (24-32); TOTAL PROTEIN 6.1 G/DL (6.4-8.2); eGFR > 90 ML/MIN
--- NOTE | 2019-02-18 06:00 | NUR ---
Problems reprioritized. Patient report given, questions answered & plan of care reviewed with JOSHUA Stevens.
--- NOTE | 2019-02-18 06:00 | NUR ---
Patient in room MED 307. I have received report from Nadine LEWIS and had the opportunity to ask questions and assume patient care.
[2019-02-18] MEDS: K and/or MAG REPLACEMENT MC SCH (08:00)
[2019-02-18] MEDS: magnesium Cl slow-release 64mg tablet PO SCH ×2 (08:00→20:12)
[2019-02-18] MEDS: potassium Cl 20 mEq SR tablet PO SCH ×2 (08:00→20:13)
[2019-02-18] MEDS: pantoprazole 40mg Tablet.DR PO SCH (08:16)
[2019-02-18] MEDS: aspirin 81mg tab.chew PO SCH (08:16)
[2019-02-18] MEDS: docusate sodium 100mg/10ml UD cup PO SCH ×2 (08:16→20:00)
[2019-02-18] MEDS: atorvastatin 20mg tablet PO SCH (08:16)
[2019-02-18] MEDS: ticagrelor 90mg tablet PO SCH ×2 (08:16→20:12)
[2019-02-18] MEDS: ceFAZolin 1GM/D5W- ADD-VANTAGE 50 ML IV SCH ×2 (09:34→17:48)
--- NOTE | 2019-02-18 18:00 | NUR ---
Patient in room MED 307. I have received report from JOSHUA Stevens and had the opportunity to ask questions and assume patient care.
--- NOTE | 2019-02-18 18:08 | NUR ---
Problems reprioritized. Patient report given, questions answered & plan of care reviewed with Nadine LEWIS.
--- NOTE | 2019-02-18 19:27 | NUR ---
Since I received report I have been in the patient's room multiple times and offered his meal to him. He has refused each time. He is not speaking but will not open his mouth and and closes his eyes when I ask him and encourage him to try to eat.
[2019-02-18] MEDS: losartan 25mg tablet PO SCH (20:13)
[2019-02-18] MEDS: donepezil 5mg tablet PO SCH (20:25)
[2019-02-18] MEDS: insulin glargine (Lantus) pen - multi-dose SQ SCH (21:00)
[2019-02-19] MEDS: ceFAZolin 1GM/D5W- ADD-VANTAGE 50 ML IV SCH (01:05)
--- NOTE | 2019-02-19 01:35 | NUR ---
Patient picked up his water pitcher on his own after I asked if he would like a drink of water. I also gave the patient the flutter valve and he blew in it approx 10 times. Patient tolerated well.
[2019-02-19 02:00] VITALS: BP 149/67
[2019-02-19 06:00] VITALS: BP 161/68
--- NOTE | 2019-02-19 06:00 | NUR ---
Problems reprioritized. Patient report given, questions answered & plan of care reviewed with JOSHUA Tobias.
--- NOTE | 2019-02-19 06:04 | NUR ---
Patient in room MED 307. I have received report from Tiffani LEWIS and had the opportunity to ask questions and assume patient care.
--- NOTE | 2019-02-19 07:25 | NUR ---
messaged pharmacy for lipitor not available in [email or web address].
[2019-02-19 07:35] LABS: ALANINE AMINOTRANSFERASE 27 U/L (12-78); ALBUMIN 2.4 G/DL (3.4-5.0); ALBUMIN/GLOBULIN RATIO 0.6 (1.1-1.5); ALKALINE PHOSPHATASE 62 IU/L (46-116); ANION GAP 10 (8-16); ASPARTATE AMINO TRANSFERASE 20 U/L (10-37); BILIRUBIN,TOTAL 0.6 MG/DL (0.1-1.0); BLOOD UREA NITROGEN 18 MG/DL (7-18); BUN/CREATININE RATIO 25.4 (5.4-32.0); CALCIUM 8.9 MG/DL (8.5-10.1); CHLORIDE 109 MMOL/L (99-107); CREATININE 0.71 MG/DL (0.60-1.10); GLUCOSE 126 MG/DL (70-104); MAGNESIUM 1.8 MG/DL (1.5-2.4); POTASSIUM 4.2 MMOL/L (3.5-5.1); SODIUM 142 MMOL/L (135-145); TOTAL CARBON DIOXIDE 22.7 MMOL/L (24-32); TOTAL PROTEIN 6.3 G/DL (6.4-8.2); eGFR > 90 ML/MIN
[2019-02-19] MEDS: K and/or MAG REPLACEMENT MC SCH (08:00)
[2019-02-19] MEDS: docusate sodium 100mg/10ml UD cup PO SCH ×2 (08:00→20:46)
[2019-02-19] MEDS: magnesium Cl slow-release 64mg tablet PO SCH ×2 (08:33→20:46)
[2019-02-19] MEDS: ticagrelor 90mg tablet PO SCH ×2 (08:33→20:46)
[2019-02-19] MEDS: cephalexin 500mg capsule PO SCH ×2 (08:33→20:46)
[2019-02-19] MEDS: aspirin 81mg tab.chew PO SCH (08:34)
[2019-02-19] MEDS: pantoprazole 40mg Tablet.DR PO SCH (08:34)
[2019-02-19] MEDS: potassium Cl 20 mEq SR tablet PO SCH ×2 (08:34→20:47)
[2019-02-19 11:00] VITALS: BP 140/60
[2019-02-19] MEDS: atorvastatin 20mg tablet PO SCH (12:39)
[2019-02-19 15:00] VITALS: BP 152/62
--- NOTE | 2019-02-19 17:55 | NUR ---
Pt. appears to have a sore on his buttock that was not present when he left our unit but it is there now since his return. We have been repositioning the patient regularly and today I transferred him over to one of our beds that adjust with his movement and placed him on a hovermat. Will continue to monitor.
[2019-02-19 18:00] VITALS: BP 141/53
--- NOTE | 2019-02-19 18:00 | NUR ---
Problems reprioritized. Patient report given, questions answered & plan of care reviewed with JOSHUA Tobias.
--- NOTE | 2019-02-19 18:18 | NUR ---
Problems reprioritized. Patient report given, questions answered & plan of care reviewed with Tiffani LEWIS.
[2019-02-19] MEDS: insulin glargine (Lantus) pen - multi-dose SQ SCH (20:41)
[2019-02-19] MEDS: donepezil 5mg tablet PO SCH (20:46)
[2019-02-19] MEDS: losartan 25mg tablet PO SCH (20:46)
[2019-02-19 22:00] VITALS: BP 121/47
[2019-02-20 01:00] VITALS: BP 121/47
[2019-02-20 02:00] VITALS: BP 131/80
[2019-02-20 03:00] VITALS: BP 131/80
--- NOTE | 2019-02-20 06:00 | NUR ---
Patient in room MED 307. I have received report from Nadine LEWIS and had the opportunity to ask questions and assume patient care.
[2019-02-20 07:00] VITALS: BP 137/68
[2019-02-20 07:08] LABS: ALANINE AMINOTRANSFERASE 25 U/L (12-78); ALBUMIN 2.4 G/DL (3.4-5.0); ALBUMIN/GLOBULIN RATIO 0.6 (1.1-1.5); ALKALINE PHOSPHATASE 60 IU/L (46-116); ANION GAP 8 (8-16); ASPARTATE AMINO TRANSFERASE 20 U/L (10-37); BILIRUBIN,TOTAL 0.5 MG/DL (0.1-1.0); BLOOD UREA NITROGEN 22 MG/DL (7-18); BUN/CREATININE RATIO 34.4 (5.4-32.0); CHLORIDE 110 MMOL/L (99-107); CREATININE 0.64 MG/DL (0.60-1.10); GLUCOSE 105 MG/DL (70-104); SODIUM 141 MMOL/L (135-145); TOTAL PROTEIN 6.2 G/DL (6.4-8.2); eGFR > 90 ML/MIN
[2019-02-20] MEDS: magnesium Cl slow-release 64mg tablet PO SCH (08:00)
[2019-02-20] MEDS: K and/or MAG REPLACEMENT MC SCH (08:00)
[2019-02-20] MEDS: potassium Cl 20 mEq SR tablet PO SCH (08:00)
[2019-02-20] MEDS: docusate sodium 100mg/10ml UD cup PO SCH (08:52)
[2019-02-20] MEDS: ticagrelor 90mg tablet PO SCH (08:52)
[2019-02-20] MEDS: atorvastatin 20mg tablet PO SCH (08:52)
[2019-02-20] MEDS: aspirin 81mg tab.chew PO SCH (08:52)
[2019-02-20] MEDS: pantoprazole 40mg Tablet.DR PO SCH (08:52)
[2019-02-20] MEDS: cephalexin 500mg capsule PO SCH (08:52)
[2019-02-20 11:00] VITALS: BP 142/55
[2019-02-20 15:10] VITALS: BP 143/68
--- NOTE | 2019-02-20 15:18 | NUR ---
PRESSURE ULCER EDUCATION: DEFINITION: A pressure ulcer is an area of skin that breaks down when you stay in one position too long. The constant pressure against the skin reduces the blood flow to that area and the affected tissue dies. CAUSES: "Being bedridden or in a wheelchair "Fragile skin "Having a chronic condition, such as diabetes or vascular disease "Inability to move certain parts of your body without assistance "Older age "Incontinence of urine or stool SYMPTOMS: "A reddened area that DOES NOT turn white when pressed on - this can be the beginning of a pressure ulcer "A blister, deep sore or a crater - these can be advanced pressure ulcers FIRST AID: "Relieve the pressure on this area "Keep the area clean and dry "Call your primary doctor if you see any of the above symptoms "DO NOT massage the area "DO NOT use a donut shaped or ring shaped pillow- these actually interfere with the blood flow and cause complications PREVENTION: "Check for pressure ulcers everyday "Change position at least every two hours to relieve pressure "Use items that help relieve pressure- pillows, sheepskin, foam padding, and powders. "Keep skin clean and dry "Eat healthy well balanced meals "Exercise daily IF YOU SEE ANY OF THESE SYMPTOMS WHILE IN THE HOSPITAL - TELL YOUR NURSE IMMEDIATELY. IF YOU SEE ANY OF THESE SYMPTOMS WHILE AT HOME OR HAVE ANY QUESTIONS OR CONCERNS ABOUT PRESSURE ULCERS - CALL YOUR PRIMARY DOCTOR IMMEDIATELY. Addendum: 02/20/19 at 1534 by Sonja Jolley RN Amended: Links added.
--- NOTE | 2019-02-20 15:29 | NUR ---
RECOMMEND: 1. Daily bathing with no rinse skin cleanser. 2. Cream/Lotion to be applied to skin after bathing. 3. Lexii care Q shift and prn soiling followed by with Barrier Cream. 4. Turn patient Q 1-2 hrs and reposition with pillows. 5. Float heels to offload pressure. 6. Advanta bed with P500 Mattress 7: Dietary Consult 8> Hydrophylic foam dressing to left ischial wound. Change Q3 days and prn soiling. 9. Hydrophylic foam dressing to sacrum for skin protection. Change Q3 days and prn soiling Addendum: 02/20/19 at 1534 by Sonja Jolley RN Amended: Links added.
--- NOTE | 2019-02-20 15:54 | NUR ---
Report called to Shereen Gant and all questions answered. I spoke with the pt. about his discharge and going to rehab. We collected everything in his room and sent it with him and the transport crew. I placed the pt's pacemaker booklet in his discharge packet.
== END 2019-02-20 15:55 | DRG 231 ==
LOC: ICU 2S 05:15 → UNDOADMIN 01-28 17:08 → ICU 2S 01-28 17:08 → MED 3N 02-09 14:15 → ICU 2S 02-09 14:15 → ORTHO 4S 02-14 19:30 → MED 3N 02-14 19:30 → ORTHO 4S 02-16 15:05 → UNDODISIN 02-20 15:55
PROVIDERS: ADMIT Thoracic Surgery (Cardiothoracic Vascular Surgery); ATTEND Thoracic Surgery (Cardiothoracic Vascular Surgery)
PROC: 02703DZ Dilation of Coronary Artery, One Artery with Intraluminal Device, Percutaneous Approach (ICD-10-PCS; 2019-01-26)
PROC: 02100Z9 Bypass Coronary Artery, One Artery from Left Internal Mammary, Open Approach (ICD-10-PCS; 2019-01-26)
PROC: 021109W Bypass Coronary Artery, Two Arteries from Aorta with Autologous Venous Tissue, Open Approach (ICD-10-PCS; 2019-01-26)
PROC: 06BQ4ZZ Excision of Left Saphenous Vein, Percutaneous Endoscopic Approach (ICD-10-PCS; 2019-01-26)
PROC: 06BP4ZZ Excision of Right Saphenous Vein, Percutaneous Endoscopic Approach (ICD-10-PCS; 2019-01-26)
PROC: 5A1221Z Performance of Cardiac Output, Continuous (ICD-10-PCS; 2019-01-26)
PROC: B24BZZ4 Ultrasonography of Heart with Aorta, Transesophageal (ICD-10-PCS; 2019-01-26)
PROC: 5A1945Z Respiratory Ventilation, 24-96 Consecutive Hours (ICD-10-PCS; principal; 2019-01-28)
PROC: 5A09357 Assistance with Respiratory Ventilation, Less than 24 Consecutive Hours, Continuous Positive Airway Pressure (ICD-10-PCS; 2019-02-02)
PROC: 02HK3JZ Insertion of Pacemaker Lead into Right Ventricle, Percutaneous Approach (ICD-10-PCS; 2019-02-18)
PROC: 0JH604Z Insertion of Pacemaker, Single Chamber into Chest Subcutaneous Tissue and Fascia, Open Approach (ICD-10-PCS; 2019-02-18)
DX: I25.10 Atherosclerotic heart disease of native coronary artery without angina pectoris (principal); I63.231 Cerebral infarction due to unspecified occlusion or stenosis of right carotid arteries; J96.90 Respiratory failure, unspecified, unspecified whether with hypoxia or hypercapnia; I50.33 Acute on chronic diastolic (congestive) heart failure; I48.92 Unspecified atrial flutter; I69.351 Hemiplegia and hemiparesis following cerebral infarction affecting right dominant side; G81.94 Hemiplegia, unspecified affecting left nondominant side; I25.5 Ischemic cardiomyopathy; I11.0 Hypertensive heart disease with heart failure; I44.1 Atrioventricular block, second degree; E11.42 Type 2 diabetes mellitus with diabetic polyneuropathy; I08.0 Rheumatic disorders of both mitral and aortic valves; I49.5 Sick sinus syndrome; I48.91 Unspecified atrial fibrillation; G62.9 Polyneuropathy, unspecified; E11.9 Type 2 diabetes mellitus without complications; Z95.1 Presence of aortocoronary bypass graft; Z79.84 Long term (current) use of oral hypoglycemic drugs; Z86.14 Personal history of Methicillin resistant Staphylococcus aureus infection; Z75.1 Person awaiting admission to adequate facility elsewhere
CPT/HCPCS: 0232T; 33207; 36222; 37215; 93312; 93325; 36415; 36600; 70450; 70496; 70498; 70551; 71045; 74018; 80048; 80053; 81003; 82140; 82330; 82435; 82803; 82947; 82948; 83036; 83721; 83735; 84100; 84132; 84134; 84295; 84443; 84484; 85018; 85025; 85347; 85384; 85576; 85610; 85730; 86885; 86900; 86901; 86920; 87070; 92508; 92616; 93005; 93880; 93882; 93970; 93971; 94002; 94003; 94640; 94660; 94667; 94668; 94760; 97110; 97112; 97116; 97161; 97530; 97535; 99152; 99153; A4565; A6255; A6257; A6258; A6402; A6446; A6449; A7000; A7048; C1725; C1751; C1769; C1786; C1876; C1884; C1887; C1894; C1898; C9113; G0378; J0131; J0461; J0690; J1265; J1644; J1815; J1940; J2001; J2060; J2150; J2270; J2370; J2405; J2440; J2704; J2720; J2795; J2930; J3010; J3370; J3475; J3480; J3490; J7030; J7060; J7120; P9045; P9047; Q0163; Q9967